=== PATIENT | female | born 1940 | race Caucasian/White ===

== ENCOUNTER → 2016-08-19 | Outpatient (CLI) | payer MEDICARE, BC, OTHER ==
[~2016-08-19] MED LIST: ALEN70TA39 PO; ARTI99.0 OU; ASPI81TA7 PO; BYST2.5T2 PO; CALC1TAB21 PO; CARV3.12 PO; ELIQ2.5T PO; ELIQ5TAB PO; FISH100049 PO; LISI-538 PO; MELO7.5T6 PO; OMEP20CA3 PO; REST0.05 OU; TYLE167L PO; TYLE650T30 PO; VITA-130 PO; VITA100066 PO; VITA250011 SL; VITMTA PO; [UNRECOGNIZED DRUG - CODE] PO; [UNRECOGNIZED DRUG - CODE] TD
--- NOTE | 2016-08-19 13:12 | REPMRS ---
Patient History The patient states she has not had a clinical breast exam in over a year. Patient is postmenopausal. Family history of premenopausal breast cancer in sister at age 50 or over. Benign excisional biopsy of the left breast, 1995. Taking estrogen for 34 years. Digital Woman Screen Mammo: August 19, 2016 - Exam #: [id number] Bilateral CC and MLO view(s) were taken. Technologist: Rozina Adorno, Technologist Prior study comparison: August 16, 2015, digital woman screen mammo performed at [facility]. August 09, 2014, digital woman screen mammo performed at [facility]. August 08, 2013, digital woman screen mammo performed at [facility]. FINDINGS: There are scattered fibroglandular densities. There has been no change in the appearance of the mammogram from the prior studies. There is a pacemaker power plant projecting over the left axilla on the MLO view. There is a mild amount of scattered fibroglandular density which is fairly symmetric. There is no interval development of dominant mass, architectural distortion, or clustered microcalcification suggestive of malignancy. ASSESSMENT: BI-RADS/ACR category 2 mammogram. Benign finding(s). Recommendation Routine screening mammogram in 1 year (for women over age 40). This mammogram was interpreted with the aid of an FDA-approved computer-aided dectection system. Electronically Signed By: Erik Locke MD 08/19/16 [id number]
== END ==
LOC: M WHC 10:50
PROVIDERS: ATTEND Family Medicine
DX: Z12.31 Encounter for screening mammogram for malignant neoplasm of breast (principal)

== ENCOUNTER → 2016-10-13 | Outpatient (REF) | payer MEDICARE, OTHER ==
[~2016-10-13] MED LIST changes: +ACET-654 PO
== END ==
LOC: M LAB REF 16:54
PROVIDERS: ATTEND Physician Assistant
DX: J30.9 Allergic rhinitis, unspecified (principal); J02.9 Acute pharyngitis, unspecified

== ENCOUNTER → 2016-10-17 | Outpatient (CLI) | payer MEDICARE, BC, OTHER ==
--- NOTE | 2016-10-17 09:33 | REP ---
Clinical: Hypertension . Comparison: 01/30/2016 . Technique: PA and lateral. Findings: The mediastinum and cardiac silhouette are normal. The lung johnson suggest COPD without acute consolidation, effusion, or pneumothorax. The skeletal structures are intact and normal. Impression: 1. No acute cardiopulmonary process. Signed by Angel Alicia MD 10/17/2016 09:25 A
[2016-10-17 09:38] LABS: MEAN CORPUSCULAR HEMOGLOBIN 30.1 pg (27.0-33.0); MEAN CORPUSCULAR HGB CONC 31.7 g/dl (32.0-36.5); MEAN CORPUSCULAR VOLUME 94.9 fl (80.0-96.0); RED CELL DISTRIBUTION WIDTH 12.6 % (11.5-14.5); WHITE BLOOD COUNT 7.7 K/mm3 (4.0-10.0)
[2016-10-17 09:42] LABS: INR 1.06
[2016-10-17 10:07] LABS: ALBUMIN 3.9 GM/DL (3.2-5.2); ALKALINE PHOSPHATASE 73 U/L (45-117); ALT/SGPT 19 U/L (12-78); ANION GAP 9 MEQ/L (8-16); AST/SGOT 16 U/L (15-37); BILIRUBIN,TOTAL 0.3 MG/DL (0.2-1.0); BLOOD UREA NITROGEN 17 MG/DL (7-18); CALCIUM LEVEL 9.1 MG/DL (8.8-10.2); CARBON DIOXIDE LEVEL 30 MEQ/L (21-32); CHLORIDE LEVEL 104 MEQ/L (98-107); CHOLESTEROL LEVEL 222 MG/DL (<200); CREATININE FOR GFR 0.91 MG/DL (0.55-1.02); GLOMERULAR FILTRATION RATE > 60.0 (>39); GLUCOSE, FASTING 83 MG/DL (83-110); POTASSIUM SERUM 3.9 MEQ/L (3.5-5.1); SODIUM LEVEL 143 MEQ/L (136-145); TOTAL PROTEIN 6.9 GM/DL (6.4-8.2); TRIGLYCERIDES LEVEL 86 MG/DL (<150)
--- NOTE | 2016-10-17 14:38 | ECGEPIP ---
Stationary ECG Study [facility] Test Date: 2016-10-17 Pat Name: SATINDER MORALSE Department: Room: - Gender: F Reporting Consultant: RODOLFO : 1940 Requested By: Yane Gunter Order Number: [id number] Reading MD: Ladarius Payne Measurements Intervals [place] Rate: 60 P: 110 [place]: 167 QRS: 62 QRSD: 96 T: 54 QT: 399 QTc: 399 Interpretive Statements Atrially paced rhythm Nonspecific ST-T wave abnormalities Compared to prior tracing of 01/29/2016, pacemaker activity not previously seen Electronically Signed On 10-17-2016 14:37:50 EDT by Ladarius Payne
== END ==
LOC: M LAB 08:36
PROVIDERS: ATTEND Family Medicine
DX: Z01.818 Encounter for other preprocedural examination (principal); I10 Essential (primary) hypertension; Z79.01 Long term (current) use of anticoagulants

== ENCOUNTER 2016-10-29 11:30 | Day surgery (SDC) | payer MEDICARE, BC, OTHER ==
[~2016-10-29] VITALS: Ht 152.4 cm; Wt 46.3 kg
[~2016-10-29 11:30] MED LIST changes: +ACETYLCHOLINE OPHTH SOLN 1% 2ML As Ordered ONE; +BALANCED SALT IRRIGATION SOLUTION 500ML BAG (FOR OR EYE MACHINE) As Ordered ONE; +HEALON DUET (HEALON 10MG/ML 0.55ML & HEALON ENDOCOAT 30MG/ML 0.85ML) As Ordered ONE; +LIDOCAINE 0.75%/EPINEPHRINE 0.025% IN BSS 1ML SYR INTRACAMERAL (OR ONLY) As Ordered ONE; +OFLOXACIN 0.3 % (OCUFLOX) OPTH SOL 5ML OS ONE; +PHENYLEPHRINE 2.5% OPHTH SOL 2ML OS ONE; +POVIDONE-IODINE 5% OPHTH PREP SOL 30ML As Ordered ONE; +PROPARACAINE 0.5% OPHTH SOL 15ML OS ONE; +TOBRADEX OPHTH OINT 3.5 GM As Ordered ONE; +TROPICAMIDE 1% OPHTH SOLN 2 ML OS ONE
[2016-10-29] MEDS ORDERED: TRIAMCINOLONE PRES FR 40 MG/ML 1ML(TRIESENCE)(OR EYE ONLY)(J3300 PER 1MG) As Ordered ONE (12:09)
[2016-10-29] MEDS ORDERED: HEALON DUET (HEALON 10MG/ML 0.55ML & HEALON ENDOCOAT 30MG/ML 0.85ML) As Ordered ONE ×2 (12:10→12:29)
[2016-10-29] MEDS ORDERED: fentaNYL 100 MCG/2 ML INJECTION (J3010) As Ordered ONE (12:54)
[2016-10-29] MEDS ORDERED: MIDAZOLAM INJ 2 MG/2 ML VIAL (J2250) As Ordered ONE (12:54)
[2016-10-29 13:45] VITALS: BP 175/77
--- NOTE | 2016-10-30 08:54 | RO ---
DATE OF PROCEDURE: 10/29/2016 PREOPERATIVE DIAGNOSIS: Visually significant nuclear sclerotic cataract left eye. POSTOPERATIVE DIAGNOSIS: Visually significant nuclear sclerotic cataract left eye. PROCEDURE: Extracapsular cataract removal with insertion of intraocular lens implant AU00T0, 18.5 Diopter, left eye SURGEON: Kike Devi DO PRINTMAKER: ANESTHESIA: Local with monitored anesthesia care (MAC). COMPLICATIONS: None. POSTOPERATIVE CONDITION: Stable. INDICATION FOR SURGERY: Blurred vision left eye affecting patient's activities of daily living. DESCRIPTION OF PROCEDURE: The patient was seen in the preoperative area and properly identified. The correct operative eye was identified and marked. Attention was turned to that eye. The patient received topical antibiotics in the preoperative area. The patient then received topical dilating drops consisting of tropicamide and phenylephrine. The patient was then transferred to the operating room. The correct side was reidentified. The patient received topical anesthetics and antibiotics on the surface of the eye. The eye was prepped and draped in a sterile fashion. The upper and lower eyelids were isolated with Tegaderm tape, and the lids were held open with an adjustable speculum. Using a sideport blade, a paracentesis incision was made. Intraocular preservative-free lidocaine was then injected into the anterior chamber. Viscoelastic was then injected into the anterior chamber through the paracentesis. Using a 2.65 mm sharp-tipped keratome, the anterior chamber was entered via a temporal clear corneal incision. A continuous curvilinear capsulorrhexis was created with the aid of a 26-gauge cystotome and Utrata forceps. Hydrodissection was performed with balanced salt solution (BSS) on a blunt cannula until the nucleus was freely mobile. The crystalline lens was phacoemulsified and aspirated. Additional cohesive viscoelastic was placed into the capsular bag to deepen it. AU00T0 18.5D lens was placed into the capsular bag and confirmed by visualizing the continuous curvilinear capsulorrhexis. Additional irrigation and aspiration was used to remove cortical material and remaining viscoelastic. The clear corneal incision was hydrated with BSS on a blunt cannula. The lens was well positioned. The incisions were then tested for leaks and found to be negative. The eye was then palpated for appropriate pressure and adjusted accordingly with BSS. The eyelid speculum was then carefully removed. Tobradex ointment was placed in the eye. An eye patch and shield were then secured over the eye. The patient tolerated the procedure well and was discharged to the recovery unit in a stable condition. JUAN CARLOS
== END 2016-10-29 14:00 | disposition home or self-care (01) ==
LOC: M SDC 11:30
PROVIDERS: ATTEND Ophthalmology
DX: H25.12 Age-related nuclear cataract, left eye (principal); H40.9 Unspecified glaucoma; I10 Essential (primary) hypertension; I48.91 Unspecified atrial fibrillation; Z95.0 Presence of cardiac pacemaker; K21.9 Gastro-esophageal reflux disease without esophagitis; M81.0 Age-related osteoporosis without current pathological fracture; J45.909 Unspecified asthma, uncomplicated; R06.83 Snoring; Z88.0 Allergy status to penicillin; Z88.5 Allergy status to narcotic agent; Z88.8 Allergy status to other drugs, medicaments and biological substances; Z91.02 Food additives allergy status; Z79.899 Other long term (current) drug therapy; Z79.01 Long term (current) use of anticoagulants; Z79.82 Long term (current) use of aspirin
CPT/HCPCS: 66984; J2250; J3010; J3300; V2632

== ENCOUNTER → 2016-11-12 | Day surgery (SDC) | payer MEDICARE, BC, OTHER ==
[~2016-11-12] VITALS: Ht 152.4 cm; Wt 46.3 kg
[~2016-11-12] MED LIST changes: +CEFUROXIME 1MG/0.1ML INTRACAMERAL INJ As Ordered ONE; +D5W/0.2% SODIUM CHLORIDE 1,000 ML IV SCH; +MIDAZOLAM INJ 2 MG/2 ML VIAL (J2250) As Ordered ONE; +OFLOXACIN 0.3 % (OCUFLOX) OPTH SOL 5ML OD ONE; -OFLOXACIN 0.3 % (OCUFLOX) OPTH SOL 5ML OS ONE; +PHENYLEPHRINE 2.5% OPHTH SOL 2ML OD ONE; -PHENYLEPHRINE 2.5% OPHTH SOL 2ML OS ONE; +PROPARACAINE 0.5% OPHTH SOL 15ML OD ONE; -PROPARACAINE 0.5% OPHTH SOL 15ML OS ONE; +TROPICAMIDE 1% OPHTH SOLN 2 ML OD ONE; -TROPICAMIDE 1% OPHTH SOLN 2 ML OS ONE; +fentaNYL 100 MCG/2 ML INJECTION (J3010) As Ordered ONE
[2016-11-12 08:50] VITALS: BP 183/83
--- NOTE | 2016-11-13 09:58 | RO ---
DATE OF PROCEDURE: 11/12/2016 PREOPERATIVE DIAGNOSIS: Visually significant nuclear sclerotic cataract right eye. POSTOPERATIVE DIAGNOSIS: Visually significant nuclear sclerotic cataract right eye. PROCEDURE: Cataract extraction with use of phacoemulsification and placement of intraocular lens AU00T0, 17.5 diopter right eye. SURGEON: Kike Devi DO HOG STICKER: ANESTHESIA: Local with monitored anesthesia care (MAC). COMPLICATIONS: None. POSTOPERATIVE CONDITION: Stable. INDICATION FOR SURGERY: Blurred vision right eye affecting patient's activities of daily living. DESCRIPTION OF PROCEDURE: The patient was seen in the preoperative area and properly identified. The correct operative eye was identified and marked. Attention was turned to that eye. The patient received topical antibiotics in the preoperative area. The patient then received topical dilating drops consisting of tropicamide and phenylephrine. The patient was then transferred to the operating room. The correct side was reidentified. The patient received topical anesthetics and antibiotics on the surface of the eye. The eye was prepped and draped in a sterile fashion. The upper and lower eyelids were isolated with Tegaderm tape, and the lids were held open with an adjustable speculum. Using a sideport blade, a paracentesis incision was made. Intraocular preservative-free lidocaine was then injected into the anterior chamber. Viscoelastic was then injected into the anterior chamber through the paracentesis. Using a 2.65 mm sharp-tipped keratome, the anterior chamber was entered via a temporal clear corneal incision. A continuous curvilinear capsulorrhexis was created with the aid of a 26-gauge cystotome and Utrata forceps. Hydrodissection was performed with balanced salt solution (BSS) on a blunt cannula until the nucleus was freely mobile. The crystalline lens was phacoemulsified and aspirated. Additional cohesive viscoelastic was placed into the capsular bag to deepen it. An AU00T0, 17.5 diopter lens was placed into the capsular bag and confirmed by visualizing the continuous curvilinear capsulorrhexis. Additional irrigation and aspiration was used to remove cortical material and remaining viscoelastic. The clear corneal incision was hydrated with BSS on a blunt cannula. The lens was well positioned. The incisions were then tested for leaks and found to be negative. The eye was then palpated for appropriate pressure and adjusted accordingly with BSS. The eyelid speculum was then carefully removed. Tobradex ointment was placed in the eye. An eye patch and shield were then secured over the eye. The patient tolerated the procedure well and was discharged to the recovery unit in a stable condition. JUAN CARLOS
== END | disposition home or self-care (01) ==
LOC: M SDC 06:27
PROVIDERS: ATTEND Ophthalmology
DX: H25.11 Age-related nuclear cataract, right eye (principal); H40.9 Unspecified glaucoma; I48.91 Unspecified atrial fibrillation; I10 Essential (primary) hypertension; J45.909 Unspecified asthma, uncomplicated; Z95.0 Presence of cardiac pacemaker; K21.9 Gastro-esophageal reflux disease without esophagitis; M81.0 Age-related osteoporosis without current pathological fracture; R06.83 Snoring; Z88.5 Allergy status to narcotic agent; Z88.0 Allergy status to penicillin; Z88.4 Allergy status to anesthetic agent; Z91.02 Food additives allergy status; Z79.899 Other long term (current) drug therapy; Z79.01 Long term (current) use of anticoagulants; Z79.82 Long term (current) use of aspirin
CPT/HCPCS: 66984; J2250; J3010; V2632

== ENCOUNTER 2017-04-02 09:42 | Inpatient (IN) | payer MEDICARE, BC, OTHER ==
[~2017-04-02] VITALS: Ht 152.4 cm; Wt 48.9 kg
[~2017-04-02 09:42] MED LIST changes: -ACET-654 PO; +ACET1TAB17 PO; -ACETYLCHOLINE OPHTH SOLN 1% 2ML As Ordered ONE; +ASPI1TAB15 PO; -ASPI81TA7 PO; -BALANCED SALT IRRIGATION SOLUTION 500ML BAG (FOR OR EYE MACHINE) As Ordered ONE; -CEFUROXIME 1MG/0.1ML INTRACAMERAL INJ As Ordered ONE; -D5W/0.2% SODIUM CHLORIDE 1,000 ML IV SCH; -HEALON DUET (HEALON 10MG/ML 0.55ML & HEALON ENDOCOAT 30MG/ML 0.85ML) As Ordered ONE; -LIDOCAINE 0.75%/EPINEPHRINE 0.025% IN BSS 1ML SYR INTRACAMERAL (OR ONLY) As Ordered ONE; -MELO7.5T6 PO; +MELO7.5T7 PO; -MIDAZOLAM INJ 2 MG/2 ML VIAL (J2250) As Ordered ONE; -OFLOXACIN 0.3 % (OCUFLOX) OPTH SOL 5ML OD ONE; -PHENYLEPHRINE 2.5% OPHTH SOL 2ML OD ONE; -POVIDONE-IODINE 5% OPHTH PREP SOL 30ML As Ordered ONE; -PROPARACAINE 0.5% OPHTH SOL 15ML OD ONE; -TOBRADEX OPHTH OINT 3.5 GM As Ordered ONE; -TROPICAMIDE 1% OPHTH SOLN 2 ML OD ONE; -VITA-130 PO; +VITA500T PO; -fentaNYL 100 MCG/2 ML INJECTION (J3010) As Ordered ONE
[2017-04-02] MEDS ORDERED: STOO100C PO (09:56)
[2017-04-02] MEDS ORDERED: LATA5OPD OU (09:56)
[2017-04-02] MEDS ORDERED: BUDE3CAP PO (09:57)
[2017-04-02] MEDS ORDERED: NS 500 ML IV ONE (10:15)
[2017-04-02] MEDS: NS 1,000 ML IV SCH ×3 (10:50→15:00)
[2017-04-02 11:11] LABS: ALBUMIN 3.7 GM/DL (3.2-5.2); ALKALINE PHOSPHATASE 57 U/L (45-117); ALT/SGPT 16 U/L (12-78); ANION GAP 13 MEQ/L (8-16); AST/SGOT 11 U/L (15-37); BILIRUBIN,DIRECT < 0.1 MG/DL (0.0-0.2); BILIRUBIN,TOTAL 0.3 MG/DL (0.2-1.0); BLOOD UREA NITROGEN 24 MG/DL (7-18); CALCIUM LEVEL 8.7 MG/DL (8.8-10.2); CARBON DIOXIDE LEVEL 24 MEQ/L (21-32); CHLORIDE LEVEL 106 MEQ/L (98-107); CREATININE FOR GFR 1.01 MG/DL (0.55-1.02); GLOMERULAR FILTRATION RATE 56.6 (>39); GLUCOSE, FASTING 107 MG/DL (83-110); MAGNESIUM LEVEL 1.4 MG/DL (1.8-2.4); POTASSIUM SERUM 3.5 MEQ/L (3.5-5.1); SODIUM LEVEL 143 MEQ/L (136-145); TOTAL PROTEIN 7.4 GM/DL (6.4-8.2)
[2017-04-02 11:27] LABS: ADD MANUAL DIFFER YES; DIFF SLIDE NUMBER 200; MEAN CORPUSCULAR HEMOGLOBIN 31.1 pg (27.0-33.0); MEAN CORPUSCULAR HGB CONC 32.8 g/dl (32.0-36.5); MEAN CORPUSCULAR VOLUME 94.9 fl (80.0-96.0); PLATELET COUNT, AUTOMATED 223 k/mm3 (150-450); RED CELL DISTRIBUTION WIDTH 12.7 % (11.5-14.5); WHITE BLOOD COUNT 5.1 K/mm3 (4.0-10.0)
[2017-04-02 11:29] LABS: BANDS 5 % (< 11); BASOPHILS 1 % (0-4)
[2017-04-02] MEDS ORDERED: MAG SULF 1GM/100ML (MAG RUN) 1 GM in APPROPRIATE DILUENT 1 EA IV ONE (11:30)
[2017-04-02] MEDS ORDERED: ACET50TAOT PO (12:57)
[2017-04-02] MEDS ORDERED: ONDANSETRON 4MG/2ML VIAL (J2405) IV PRN (13:30)
[2017-04-02] MEDS ORDERED: HEPARIN SOD (PORCINE) 5000 UNITS/ML VIAL SC SCH (13:30)
[2017-04-02 13:33] LABS: INR 1.01
[2017-04-02] MEDS ORDERED: POTASSIUM CHLORIDE 10 MEQ SR TABLET PO ONE (15:00)
--- NOTE | 2017-04-02 21:26 | HPEPDOC ---
General Date of Admission Apr 02, 2017 at 13:49 Primary Care Physician: Eze Attending Physician: HE Chief Complaint The patient is a 77-year-old female admitted with a reason for visit of Syncope And Colapse. Source: Patient, RN notes reviewed, Old records Exam Limitations: No limitations Associated Symptoms: Vomiting, Weakness History of Present Illness Ms. Baxter is a 77-year-old female who presents to [facility]'s Emergency Department with syncope and diarrhea. She is accompanied by her and her son. Past medical history is significant for collagenous colitis, atrial fibrillation , gastroesophageal reflux disease, sick sinus syndrome status post dual chamber pacemaker, grade I diastolic congestive heart failure, esophageal stricture with dilatation, constipation, hiatal hernia, glaucoma, post-menopausal vaginal dryness, diverticulosis, diverticulitis. Patient reports yellow, watery diarrhea since Wednesday. It is accompanied by diffuse abdominal pain that is sharp in nature. When specifically questioned about where the pain is she reports that it is midline and on the left side. She reports 12-15 episodes of diarrhea per day, but reports only minimal amounts of stool that pass with each bowel movement. Denies changes to her diet. Admits to an urge to defecate. Reports a similar episode a couple of years ago for which her primary care provider put her on prednisone. She reports minimal relief with that. States that gastroenterology performed a colonoscopy and stated that she had colitis and started her on Budesonide PO for when she develops diarrhea. She restarted her Budesonide on Wednesday and reports that since being in the hospital she has not had a bowel movement. She also reports three episodes of pre-syncope/syncope that initially started between midnight and 2AM. She reports ambulating to the restroom and being on the toilet when she states she lost consciousness. She denies post-ictal confusion and can recall the events prior and the events after the syncopal event. She then reports ambulating from the restroom back to the bedroom where she sat on the edge of the bed and felt lightheaded. She called for her 's assistance to help dress her and take her back to the restroom. She reports two more syncopal episodes in the restroom. Prior to the events she felt warm and diaphoretic. Admits to three episodes of dry heaves with one episode of clear vomitus. Admits to a headache before vomiting. Reports cardiac palpitations. Admits to low back pain. All other review of systems were negative. Evaluation in the emergency department revealed a low magnesium level and orthostatic blood pressures. Cardiac markers were negative. Hospitalist service was consulted and patient was admitted for further medical management. Home Medications Scheduled (Calcium 600 + D 600-200 mg-Unit) 1 Tab Tab, 1 TAB PO DAILY, (Reported) Acetaminophen (Acetaminophen) 500 Mg Tab, 1,000 MG PO BID, (Reported) Apixaban Base (Eliquis) 2.5 Mg Tab, 2.5 MG PO BID, (Reported) Ascorbic Acid (Vitamin C) 500 Mg Tab, 500 MG PO DAILY, (Reported) Aspirin (Aspirin) 81 Mg Tab, 81 MG PO DAILY, (Reported) Cholecalciferol (Vitamin D) 1,000 Unit Tab, 1,000 UNIT PO DAILY, (Reported) Cholestyramine (Cholestyramine) 4 Gm Pow, 4 GM PO ACHS Cyanocobalamin (Vitamin B-12) 2,500 Mcg Sub, 2,500 MCG SL DAILY, (Reported) Estradiol (Climara) 0.1 Mg/24 Hr Dis, 0.1 MG TD QWEEK, (Reported) WEDNESDAY, APPLIED TO ABDOMEN Fish Oil (Fish Oil 1000 mg) 1 Cap Cap, 1 CAP PO DAILY, (Reported) Latanoprost (Latanoprost) 50 Drop/2.5 Ml Soln, 1 DROP OU QHS, (Reported) Omeprazole (Omeprazole) 20 Mg Cap, 20 MG PO BID, (Reported) Prednisone (Prednisone) 20 Mg Tab, 20 MG PO DAILY Scheduled PRN Docusate Sodium (Stool Softener) 100 Mg Cap, 100 MG PO DAILY PRN for CONSTIPATION, (Reported) Loperamide HCl (Loperamide HCl) 2 Mg Cap, 2 MG PO TIDP PRN for DIARRHEA Allergies Coded Allergies: Red Dye (Unverified Allergy, Intermediate, RASH, 10/23/16) Codeine (Unverified Adverse Reaction, Intermediate, MIGRAINE, 10/23/16) Penicillins (Unverified Adverse Reaction, Intermediate, MIGRAINE, 10/23/16) Procaine (Unverified Adverse Reaction, Intermediate, MIGRAINE, 10/23/16) Past Medical History Medical History 1. Collagenous colitis 2. Atrial fibrillation 3. Gastroesophageal reflux disease 4. Sick sinus syndrome status post dual chamber pacemaker 5. Grade I diastolic congestive heart failure 6. Esophageal stricture with dilatation 7. Constipation 8. Hiatal hernia 9. Glaucoma 10. Post-menopausal vaginal dryness 11. Diverticulosis 12. 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 Denies tobacco Prior occasional EtOH use Denies illicit drug use Travel, domestic and international Review of Symptoms Constitutional: Reports: Weakness, Denies: Chills, Fever, Malaise, Night Sweats, Fatigue, Weight Loss Eyes: Denies: Pain, Vision change, Conjunctivae inflammation, Eyelid inflammation, Redness ENT: Reports: Head Aches, Denies: Ear Pain, Dysphagia, Sinus Congestion, Post Nasal Drip, Sore Throat, Epistaxis Skin: Denies: Rash, Lesions Pulmonary: Denies: Dyspnea, Cough Cardiovascular: Reports: Palpitations, Lt Headedness, Other Symptoms ( diaphoretic), Denies: Chest Pain, Edema Gastrointestinal: Reports: Vomiting (one episode, clear vomitus), Abdominal Pain, Diarrhea, Other Symptoms (dry heaves x3 episodes), Denies: Nausea, Constipation, Melena, Hematochezia Genitourinary: Denies: Dysuria, Frequency, Incontinence, Hematuria, Retention Hematologic: Denies: Bruising, Bleeding Excessively Endocrine: Denies: Polydipsia, Polyphagia, Polyuria Musculoskeletal: Reports: Back Pain, Denies: Neck Pain, Shoulder Pain, Joint Pain Neurological: Reports: Weakness Physical Examination General Exam: Positive: Alert, Cooperative, No Acute Distress Eye Exam: Positive: PERRLA, Conjunctiva & lids normal, EOMI, Negative: Sclera icteric, Ptosis ENT Exam: Positive: Atraumatic, Mucous membr. moist/pink, Pharynx Normal, Tongue Midline, Nares Patent, Negative: Pharyngeal Edema Neck Exam: Positive: Supple, +2 carotid pulse wo bruit, Negative: JVD, thyromegaly, Lymphadenopathy Chest Exam: Positive: Clear to auscultation, Normal air movement, Negative: Rales, Rhonchi, Wheezing Heart Exam: Positive: Rate Normal, Regular Rhythm, Normal S1, Normal S2, Negative: Gallops, Murmurs, Rubs Telemetry: Positive: Sinus Abdomen Exam: Positive: Normal bowel sounds, Soft, Negative: Tenderness, Hepatospenomegaly, Mass, Hernia Extremity Exam: Positive: Normal pulses, Negative: Clubbing, Cyanosis, Edema, Tenderness, Swelling Skin Exam: Positive: Nl turgor and temperature, Negative: Rash, Breakdown Neuro Exam: Positive: Normal Speech, Strength at 5/5 X4 ext, Cranial Nerves 3- 12 NL Psych Exam: Positive: Oriented x 3 Vital Signs Vital Signs Date Time Temp Pulse Resp B/P (MAP) Pulse Ox O2 Delivery O2 Flow Rate FiO2 04/02/17 19:31 74 97 04/02/17 19:01 134/60 (84) 04/02/17 09:43 98.1 18 Room Air Height (in): 60 Weight (kg): 104 BMI (kg): 44.8 Laboratory Data Labs 24H Laboratory Tests 2 04/02/17 10:36: Neutrophils 74, Band Neutrophils 5, Lymphocytes (Manual) 12L, Monocytes (Manual ) 8, Basophils (Manual) 1, Platelet Estimate NORMAL, Red Blood Cell Morphology NORMAL, Prothrombin Time 13.4, Prothromb Time International Ratio 1.01, Anion Gap 13, Glomerular Filtration Rate 56.6, Lactic Acid Level 1.0, Calcium Level 8.7L, Magnesium Level 1.4L, Aspartate Amino Transf (AST/SGOT) 11L, Alanine Aminotransferase (ALT/SGPT) 16, Alkaline Phosphatase 57, Total Bilirubin 0.3, Direct Bilirubin < 0.1, Total Creatine Kinase 51, Creatine Kinase MB 1.3, Creatine Kinase MB Relative Index 2.54, Troponin I < 0.02, Total Protein 7.4, Albumin 3.7, Albumin/Globulin Ratio 1.00, Lipase 102, Thyroid Stimulating Hormone (TSH) 0.904 04/02/17 18:55: Total Creatine Kinase 35, Creatine Kinase MB 1.0, Creatine Kinase MB Relative Index 2.85, Troponin I < 0.02 04/02/17 19:46: 04/02/17 19:47: CBC/BMP Laboratory Tests 04/02/17 10:36 Red Blood Count 4.35, Mean Corpuscular Volume 94.9, Mean Corpuscular Hemoglobin 31.1, Mean Corpuscular Hemoglobin Concent 32.8, Red Cell Distribution Width 12.7 Microbiology Microbiology 04/02/17 Stool Lactoferrin, Received Pending 04/02/17 Gastrointestinal Tract Panel (PCR), Received Pending Assessment/Plan Ms. Baxter is a 77-year-old female with a past medical history significant for collagenous colitis, atrial fibrillation, gastroesophageal reflux disease, sick sinus syndrome status post dual chamber pacemaker, grade I diastolic congestive heart failure, esophageal stricture with dilatation, constipation, hiatal hernia, glaucoma, post-menopausal vaginal dryness, diverticulosis, diverticulitis who presents with syncope secondary to dehydration and diarrhea. Plan / VTE VTE Prophylaxis Ordered?: Yes (TEDs, sequentials, knee high compression, Eliquis) Plan Plan Orthostatic hypotension NS @ 75 mLs/hr. Fall precautions in place. Bedrest with commode privileges for the time-being. Could consider adjusting once patient is no longer orthostatic. Obtain TSH (it was within optimal range). Obtain echocardiogram. Dr. Lazcano is patient's pool nurse. Diarrhea Appears to be resolving. Continue with Budesonide 9mg daily. Obtain GI panel. Obtain stool chloride, stool potassium, stool sodium, and stool polys. Monitor BMP for electrolyte abnormalities. Monitor I/Os. Dr. Devi is patient's pit recorder. Hypomagnesemia Replenished. Monitor magnesium levels. Atrial fibrillation Currently in NSR based on most recent EKG. Continue patient on Eliquis. Patient is not on a beta-madelaine. Dyslipidemia Continue patient on Prilosec. Disposition Admit: Progressive care unit Anticipated hospitalization: 2 nights Attending: Dr. Caldwell IVF: Initiate (NS @ 75 mLs/hr) Diet: Continue Current (2g sodium) Activity: Bedrest (with commode privileges) Diagnostics: Check Labs, Repeat Labs in AM, TTE Anticipated Discharge: Home GME ATTESTATION GME ATTESTATION My preceptor for this patient encounter was physically present in the building during the encounter and was fully available. As needed, all aspects of the patient interview, examination, medical decision making process, and medical care plan development were reviewed and approved by the preceptor. Preceptor is aware and concurs with the plan as stated in the body of this note and will attest to such by his/her cosignature. ATTENDING NOTE I have both independently examined this patient as well as reviewed the note. I have discussed in detail with the resident the findings and plan of treatment as documented in the residents note. I will continue to follow the patient and offer further guidance to the patients care as necessary during this hospital stay. ANISA Covarrubias MDI Apr 02, 2017 21:26 MIKY CALDWELL MD Apr 19, 2017 18:48
[2017-04-02 21:28] VITALS: BP_SYST 138; BP_SYST 140; BP_SYST 159; BP_DIAS 63; BP_DIAS 71; BP_DIAS 77
[2017-04-02] MEDS: APIXABAN 2.5 MG TAB (ELIQUIS) PO SCH (21:59)
[2017-04-02] MEDS: LATANOPROST 0.005% OPHTH SOLN 2.5 ML OU SCH (21:59)
[2017-04-02] MEDS: OMEPRAZOLE 20 MG CAP PO SCH (21:59)
[2017-04-03] VITALS (8 sets, daily range): BP systolic 129–193; BP diastolic 60–82
[2017-04-03] MEDS: NS 1,000 ML IV SCH (03:20)
[2017-04-03] MEDS ORDERED: **hydrALAZINE HCL** 25 MG TAB PO SCH (06:00)
[2017-04-03 07:29] LABS: ADD MANUAL DIFFER YES; MEAN CORPUSCULAR HEMOGLOBIN 30.4 pg (27.0-33.0); MEAN CORPUSCULAR HGB CONC 31.9 g/dl (32.0-36.5); MEAN CORPUSCULAR VOLUME 95.3 fl (80.0-96.0); PLATELET COUNT, AUTOMATED 192 k/mm3 (150-450); RED CELL DISTRIBUTION WIDTH 12.8 % (11.5-14.5)
[2017-04-03 07:35] LABS: ANION GAP 9 MEQ/L (8-16); BLOOD UREA NITROGEN 16 MG/DL (7-18); CALCIUM LEVEL 8.1 MG/DL (8.8-10.2); CARBON DIOXIDE LEVEL 22 MEQ/L (21-32); CHLORIDE LEVEL 115 MEQ/L (98-107); GLOMERULAR FILTRATION RATE > 60.0 (>39); GLUCOSE, FASTING 80 MG/DL (83-110); MAGNESIUM LEVEL 1.6 MG/DL (1.8-2.4); POTASSIUM SERUM 3.7 MEQ/L (3.5-5.1); SODIUM LEVEL 146 MEQ/L (136-145)
[2017-04-03] MEDS ORDERED: MAG SULF 1GM/100ML (MAG RUN) 1 GM in APPROPRIATE DILUENT 1 EA IV ONE (07:45)
[2017-04-03] MEDS ORDERED: POTASSIUM CHLORIDE 10 MEQ SR TABLET PO ONE (07:45)
[2017-04-03 08:00] LABS: EOSINOPHILS 2 % (0-5)
[2017-04-03] MEDS: BUDESONIDE EC 3 MG CAP (ENTOCORT EC) PO SCH (08:33)
[2017-04-03] MEDS: OMEPRAZOLE 20 MG CAP PO SCH ×2 (08:33→22:03)
[2017-04-03] MEDS: APIXABAN 2.5 MG TAB (ELIQUIS) PO SCH ×3 (08:33→22:21)
[2017-04-03] MEDS: ASCORBIC ACID 500 MG TAB PO SCH (08:33)
[2017-04-03] MEDS: VITAMIN D 1,000 INTERNATIONAL UNITS TABLET PO SCH (08:38)
[2017-04-03] MEDS: ASPIRIN 81 MG ENTERIC TAB PO SCH (08:38)
[2017-04-03] MEDS: LR 1,000 ML IV SCH ×2 (09:15→22:35)
--- NOTE | 2017-04-03 12:50 | ECHO ---
DATE OF STUDY: 04/03/2017 REFERRING PHYSICIAN: Abigail Cárdenas DO INDICATION: Syncope. The study was performed on 04/03/2017. The patient measures 152 cm and weighs 104 kg. Dimensions: IVS 1.0 LV 3.5 LVPW 1.0 LA 3.4 Aorta 2.9 Left atrial volume index is 19 ml/m2. FINDINGS: The study is of acceptable technical quality, especially considering the patient's body habitus. Left ventricle is of normal size and normal systolic function with estimated left ventricular ejection fraction (LVEF) 60% to 65%. Right ventricle also appears normal. Both atria appear normal. Left atrium is normal size. There is a pacemaker wire artifact apparent in right-sided heart chambers. Aortic valve is minimally sclerotic, but mobility is preserved. Mitral and tricuspid valve appear normal. Pulmonic valve was poorly visualized but grossly appears normal. No pericardial effusion is noted. Inferior vena cava is normal size. Aortic root and abdominal aorta appear normal. Aortic arch was not well seen. Doppler interrogation reveals no aortic stenosis or insufficiency. There is trace mitral insufficiency and mild tricuspid insufficiency. Calculated pulmonary artery pressure is in 30s corresponding to mild pulmonary hypertension. Mitral inflow pattern and tissue Doppler imaging of mitral annulus reveal grade 1 diastolic dysfunction. E prime septal and E prime lateral velocities are 7.1 and 7.5 cm/sec, respectively. CONCLUSIONS: 1. The study is of acceptable technical quality. 2. Normal left ventricle (LV) size and systolic function. Grade 1 diastolic dysfunction. 3. No significant valvular disease. 4. Normal central venous pressure. 5. Likely mild pulmonary hypertension. 6. Pacemaker wire artifact noted in right-sided heart chambers. COMMENT: Subacute bacterial endocarditis (SBE) prophylaxis is not recommended. No obvious findings to explain syncopal event. MTDD
[2017-04-03] MEDS: PINK BISMUTH SUSP 524MG/30ML ORAL SYRINGE PO SCH ×2 (13:10→18:30)
--- NOTE | 2017-04-03 16:45 | IPN ---
DATE: 04/03/2017 Patient seen and examined. No acute events overnight. Continues to have multiple episodes of diarrhea, more than 10 times. Denies any lightheadedness. Orthostatic hypotension has resolved. Denies fevers, chills, abdominal pain. Reported abdominal bloating. Denies any nausea or vomiting. Tolerating oral. VITAL SIGNS: Temperature 99.3, pulse 66, respirations 16, blood pressure 129/61, pulse oximetry 97% on room air. LABORATORY DATA: WBC 6, hemoglobin and hematocrit 11.7/36.7, platelets 192. Chemistry: Sodium 146, potassium 3.7, chloride 115, bicarbonate 22, BUN 16, creatinine 0.6, magnesium 1.6. Cardiac enzymes negative. PHYSICAL EXAMINATION: GENERAL: Patient alert and oriented times three in no acute distress. HEENT: Normocephalic, atraumatic. PULMONARY: Bilaterally clear to auscultation. CARDIAC: Regular rate and rhythm. Normal S1, S2. ABDOMEN: Soft. Hyperactive bowel sounds. No rebound. No guarding. EXTREMITIES: No clubbing, cyanosis, or edema. ASSESSMENT AND PLAN: This is a 77-year-old female patient with underlying medical history of collagenous colitis, atrial fibrillation, gastroesophageal reflux disease (GERD), sick sinus syndrome with dual-chamber pacemaker, grade 1 diastolic congestive heart failure (CHF), esophageal stricture with dilation, constipation, hiatal hernia, glaucoma, postmenopausal vaginal dryness, diverticulosis, diverticulitis, presented with syncope secondary to dehydration due to diarrhea. 1. Orthostatic hypotension. Intravenous (IV) fluids have been given. Patient currently normotensive. Will continue to monitor. Syncope workup. Will obtain echocardiogram. Patient's cardiology is Dr. Lazcano. 2. Diarrhea, likely secondary to flare-up of patient's collagenous colitis. Continue budesonide. Case discussed with Dr. Devi. Pepto-Bismol has been added. Gastrointestinal (GI) panel negative. Followup stool studies. Strict intake and output. Give additional IV fluids if needed. 3. Hypomagnesemia, likely secondary to GI loss. Supplement and continue to monitor. 4. Atrial fibrillation, currently normal sinus. Continue Eliquis. Patient not on beta blockers. 5. Dyslipidemia. Outpatient followup. 6. GERD. Continue proton pump inhibitor (PPI). 7. Deep vein thrombosis (DVT) prophylaxis. Patient on Eliquis. DISPOSITION: Pending clinical improvement. Will monitor fluid status.
--- NOTE | 2017-04-03 17:17 | ECGEPIP ---
Stationary ECG Study [facility] - ED Test Date: 2017-04-02 Pat Name: SATINDER MORALES Department: Room: - Gender: F Housing Management Officer: maxime : 1940 Requested By: Cris Duncan Order Number: [id number] Reading MD: Cris Duncan Measurements Intervals [place] Rate: 80 P: 80 MO: 145 QRS: 62 QRSD: 100 T: 26 QT: 368 QTc: 426 Interpretive Statements SINUS RHYTHM NONSPECIFIC ST & T-WAVE ABNORMALITY PRIOR 10/17/16 APACED Electronically Signed On 04-03-2017 17:17:28 EDT by Cris Duncan
[2017-04-03] MEDS: LATANOPROST 0.005% OPHTH SOLN 2.5 ML OU SCH (21:00)
[2017-04-03] MEDS: ACETAMINOPHEN TAB 650MG DOSE (2X325MG) PO SCH (22:45)
[2017-04-04 00:15] VITALS: BP 140/63
[2017-04-04] MEDS ORDERED: MAG SULF 1GM/100ML (MAG RUN) 1 GM in APPROPRIATE DILUENT 1 EA IV ONE (00:30)
[2017-04-04 05:33] VITALS: BP 143/63
[2017-04-04 05:46] LABS: ANION GAP 10 MEQ/L (8-16); BLOOD UREA NITROGEN 10 MG/DL (7-18); CARBON DIOXIDE LEVEL 22 MEQ/L (21-32); CHLORIDE LEVEL 114 MEQ/L (98-107); CREATININE FOR GFR 0.72 MG/DL (0.55-1.02); GLOMERULAR FILTRATION RATE > 60.0 (>39); GLUCOSE, FASTING 86 MG/DL (83-110); POTASSIUM SERUM 3.2 MEQ/L (3.5-5.1); SODIUM LEVEL 146 MEQ/L (136-145)
[2017-04-04 05:50] LABS: ADD MANUAL DIFFER YES; MEAN CORPUSCULAR HEMOGLOBIN 30.9 pg (27.0-33.0); MEAN CORPUSCULAR HGB CONC 33.7 g/dl (32.0-36.5); MEAN CORPUSCULAR VOLUME 91.8 fl (80.0-96.0); PLATELET COUNT, AUTOMATED 208 k/mm3 (150-450); RED CELL DISTRIBUTION WIDTH 12.7 % (11.5-14.5); WHITE BLOOD COUNT 4.9 K/mm3 (4.0-10.0)
[2017-04-04] MEDS ORDERED: POTASSIUM CHLORIDE 10 MEQ SR TABLET PO ONE ×2 (06:00→08:00)
[2017-04-04] MEDS: OMEPRAZOLE 20 MG CAP PO SCH ×2 (06:41→21:00)
[2017-04-04] MEDS: PINK BISMUTH SUSP 524MG/30ML ORAL SYRINGE PO SCH ×3 (06:42→16:59)
[2017-04-04] MEDS: BUDESONIDE EC 3 MG CAP (ENTOCORT EC) PO SCH (06:42)
[2017-04-04 07:42] LABS: BANDS 10 % (< 11); EOSINOPHILS 5 % (0-5)
[2017-04-04 08:00] VITALS: BP 116/56
[2017-04-04] MEDS: APIXABAN 2.5 MG TAB (ELIQUIS) PO SCH (08:37)
[2017-04-04] MEDS: ASCORBIC ACID 500 MG TAB PO SCH (08:37)
[2017-04-04] MEDS: VITAMIN D 1,000 INTERNATIONAL UNITS TABLET PO SCH (08:38)
[2017-04-04] MEDS: ASPIRIN 81 MG ENTERIC TAB PO SCH (08:38)
[2017-04-04 12:00] VITALS: BP 121/64
[2017-04-04] MEDS: LR 1,000 ML IV SCH (13:06)
--- NOTE | 2017-04-04 15:07 | IPN ---
DATE: 04/04/2017 The patient is seen and examined. No acute events overnight. Continued to report diarrhea, at least three episodes overnight that is watery, initially was solid but later this morning was watery. Denies fevers, chills, chest pain, pressure or discomfort. Reported one episode of fever 100.9 overnight. Denies any abdominal pain but does report some bloating, gassy. Overall, the patient reported symptoms to be improved. VITAL SIGNS: Maximum temperature (T-max) 100.9, T-current 98.8, pulse 97, respirations 19, blood pressure 116/56, pulse oximetry 97% on room air. LABORATORY DATA: WBC 4.9, hemoglobin and hematocrit 12/35.6, platelets 208. Chemistry: Sodium 146, potassium 3.2, chloride 114, bicarbonate 22, BUN 10, creatinine 0.72. PHYSICAL EXAMINATION: GENERAL: Patient alert and oriented times three in no acute distress. HEENT: Normocephalic, atraumatic. PULMONARY: Bilaterally clear to auscultation. CARDIAC: Regular rate and rhythm every normal S1, S2. ABDOMEN: Soft, nondistended. Normal bowel sounds. No rebound. No guarding. EXTREMITIES: No clubbing, cyanosis, or edema. ASSESSMENT AND PLAN: This is a 77-year-old female patient with underlying medical history of collagenous colitis, atrial fibrillation, gastroesophageal reflux disease (GERD), sick sinus syndrome with dual-chamber pacemaker, grade 1 diastolic dysfunction, esophageal stricture with dilation, constipation, hiatal hernia, glaucoma, postmenopausal vaginal dryness, diverticulosis, diverticulitis, who presented with syncope secondary to dehydration and diarrhea. 1. Orthostatic hypotension. Resolved with intravenous (IV) fluids. The patient is currently normotensive. We will continue to monitor. 2. Syncope. Telemetry monitoring. The patient's outpatient photographic reproduction technician is Dr. Lazcano. Echocardiogram appreciated. 3. Diarrhea, secondary to flare-up of patient's collagenous colitis. Continue budesonide. Case discussed with Dr. Devi. Pepto-Bismol has been added. Gastrointestinal (GI) panel has been negative. Stool studies appreciated. Strict intake and output. IV fluids initially provided. We will add cholestyramine if the patient's symptoms do not improved. 4. Hypomagnesemia, hypokalemia. Supplement and continue to follow. Likely secondary to GI loss. 5. Atrial fibrillation, currently in sinus rhythm. Continue Eliquis. The patient not on beta blockers. Telemetry monitoring. 6. Dyslipidemia. Outpatient followup. 7. GERD. Continue proton pump inhibitor (PPI). 8. Deep vein thrombosis (DVT) prophylaxis. The patient on Eliquis. DISPOSITION: Pending clinical improvement. We will monitor the patient's fluid status and bowel movements.
[2017-04-04 16:00] VITALS: BP 125/60
[2017-04-04] MEDS: CHOLESTYRAMINE 4 GM PWD PKT PO SCH ×2 (16:59→20:55)
[2017-04-04 20:02] VITALS: BP 136/61
[2017-04-04] MEDS: LATANOPROST 0.005% OPHTH SOLN 2.5 ML OU SCH (21:00)
[2017-04-04] MEDS: ACETAMINOPHEN TAB 650MG DOSE (2X325MG) PO SCH (21:00)
[2017-04-05 00:19] VITALS: BP 138/63
[2017-04-05] MEDS: LR 1,000 ML IV SCH ×2 (01:15→17:19)
[2017-04-05 04:57] VITALS: BP 144/66
[2017-04-05 05:24] LABS: BASO % 0.4 % (0.0-1.0); EOS # 0.1 K/mm3 (0.0-0.50); EOS % 1.8 % (0.0-3.0); LARGE UNSTAINED CELL # 0.3 K/mm3 (0.0-0.4); LYMPH # 1.4 K/mm3 (1.5-4.5); LYMPH % 19.5 % (24.0-44.0); MEAN CORPUSCULAR HEMOGLOBIN 31.8 pg (27.0-33.0); MEAN CORPUSCULAR HGB CONC 34.2 g/dl (32.0-36.5); MEAN CORPUSCULAR VOLUME 93.1 fl (80.0-96.0); MONO # 1.1 K/mm3 (0.0-0.8); MONO % 14.4 % (0.0-5.0); NEUTROPHILS # 4.4 K/mm3 (1.8-7.7); PLATELET COUNT, AUTOMATED 210 k/mm3 (150-450); RED CELL DISTRIBUTION WIDTH 12.7 % (11.5-14.5); WHITE BLOOD COUNT 7.4 K/mm3 (4.0-10.0)
[2017-04-05 05:40] LABS: ANION GAP 9 MEQ/L (8-16); BLOOD UREA NITROGEN 9 MG/DL (7-18); CALCIUM LEVEL 8.4 MG/DL (8.8-10.2); CARBON DIOXIDE LEVEL 24 MEQ/L (21-32); CHLORIDE LEVEL 111 MEQ/L (98-107); CREATININE FOR GFR 0.87 MG/DL (0.55-1.02); GLOMERULAR FILTRATION RATE > 60.0 (>39); GLUCOSE, FASTING 81 MG/DL (83-110); POTASSIUM SERUM 3.7 MEQ/L (3.5-5.1); SODIUM LEVEL 144 MEQ/L (136-145)
[2017-04-05] MEDS: CHOLESTYRAMINE 4 GM PWD PKT PO SCH ×4 (06:23→20:35)
[2017-04-05 08:00] VITALS: BP 142/62
[2017-04-05] MEDS: OMEPRAZOLE 20 MG CAP PO SCH ×2 (08:22→20:36)
[2017-04-05] MEDS: APIXABAN 2.5 MG TAB (ELIQUIS) PO SCH ×2 (08:23→20:36)
[2017-04-05] MEDS: BUDESONIDE EC 3 MG CAP (ENTOCORT EC) PO SCH (08:23)
[2017-04-05] MEDS: PINK BISMUTH SUSP 524MG/30ML ORAL SYRINGE PO SCH ×3 (08:23→17:18)
[2017-04-05] MEDS: VITAMIN D 1,000 INTERNATIONAL UNITS TABLET PO SCH (08:23)
[2017-04-05] MEDS: ASPIRIN 81 MG ENTERIC TAB PO SCH (08:23)
[2017-04-05] MEDS: ASCORBIC ACID 500 MG TAB PO SCH (08:23)
[2017-04-05 12:00] VITALS: BP 144/64
[2017-04-05] MEDS: LOPERAMIDE 2 MG CAP PO SCH ×3 (12:20→20:36)
--- NOTE | 2017-04-05 12:21 | IPN ---
DATE OF SERVICE: 04/05/2017 Patient continues to have numerable episodes of diarrhea. She said that she had 10 bowel movements since 4 a.m. this morning. She also complains of severe crampy abdominal pain, nausea, as well as severe back pain after we started her on the new medication yesterday, which I believe is cholestyramine. She also had low grade fevers yesterday with maximum temperature (Tmax) of 100.6. She says some of her bloody bowel movements are watery but most of them are small amounts and greenish liquid colored. She said that she has been watching what she eats and had only yogurt and some toast this morning. PHYSICAL EXAMINATION: VITAL SIGNS: Temperature 100.6, pulse 88, respiratory rate 18, blood pressure 142/62, pulse oximetry 100% in room air. GENERAL: Patient awake, alert, oriented times three, sitting up in bed, in no acute distress. HEENT: Normocephalic, atraumatic. Moist mucous membranes. Anicteric eyes. CHEST: Clear auscultation. CARDIOVASCULAR: There is a short systolic murmur in the aortic area. S1, S2 normal. Regular rate. ABDOMEN: Soft. Generalized tenderness in all the quadrants as well as in the periumbilical area. No rebound or guarding. Bowel sounds are normal. EXTREMITIES: No edema clubbing or cyanosis. LABORATORY DATA: WBC 7.4, hemoglobin 11.8, platelets 210. Sodium 144, potassium 3.7, chloride 111, bicarbonate 24, BUN 9, creatinine 0.8, glucose 81, calcium 8.4. Blood cultures no growth to date. GI panel has been negative. stool leucocyte is positive. ASSESSMENT AND PLAN: This is a 77-year-old female admitted for syncope, diarrhea and dehydration. Plan: 1. Syncope due to orthostatic hypotension due to volume hypovolemia from diarrhea and dehydration has resolved with intravenous (IV) fluids. Telemetry did not show any acute cardiac events to explain syncope. Echocardiogram has been reviewed. She probably has mild pulmonary hypertension and has grade 1 diastolic dysfunction. 2. Diarrhea secondary to flare-up of patient's collagenous colitis. Will continue budesonide, Pepto-Bismol, proton pump inhibitor (PPI). Patient also continue with cholestyramine for now. Will start the patient on Imodium. Dr. Devi from GI will evaluate the patient. Will continue with gentle hydration. 3. Atrial fibrillation. Currently in sinus rhythm. Patient also has a pacemaker in place. Will continue with Eliquis. 4. Dyslipidemia. Outpatient followup. 5. Gastroesophageal reflux disease (GERD). Will continue with PPI. 6. Deep vein thrombosis (DVT) prophylaxis. Patient is on Eliquis. 7. Electrolytes imbalance have been corrected. Will continue to monitor. MTDD
[2017-04-05] MEDS: predniSONE 10 MG TAB PO SCH (16:07)
[2017-04-05 20:00] VITALS: BP 137/59
[2017-04-05] MEDS: LATANOPROST 0.005% OPHTH SOLN 2.5 ML OU SCH (20:36)
[2017-04-05] MEDS: ACETAMINOPHEN TAB 650MG DOSE (2X325MG) PO SCH (20:36)
[2017-04-06 04:00] VITALS: BP 135/65
[2017-04-06 05:43] LABS: BASO % 0.1 % (0.0-1.0); EOS # 0.1 K/mm3 (0.0-0.50); EOS % 0.6 % (0.0-3.0); LARGE UNSTAINED CELL # 0.2 K/mm3 (0.0-0.4); LARGE UNSTAINED CELL % 2.4 % (0.0-4.0); LYMPH # 1.1 K/mm3 (1.5-4.5); LYMPH % 11.8 % (24.0-44.0); MEAN CORPUSCULAR HEMOGLOBIN 31.3 pg (27.0-33.0); MEAN CORPUSCULAR HGB CONC 34.3 g/dl (32.0-36.5); MEAN CORPUSCULAR VOLUME 91.3 fl (80.0-96.0); MONO # 0.4 K/mm3 (0.0-0.8); MONO % 4.2 % (0.0-5.0); NEUTROPHILS # 7.4 K/mm3 (1.8-7.7); NEUTROPHILS % 80.8 % (36.0-66.0); PLATELET COUNT, AUTOMATED 203 k/mm3 (150-450); RED CELL DISTRIBUTION WIDTH 12.6 % (11.5-14.5); WHITE BLOOD COUNT 9.2 K/mm3 (4.0-10.0)
[2017-04-06 06:01] LABS: ANION GAP 7 MEQ/L (8-16); BLOOD UREA NITROGEN 15 MG/DL (7-18); CALCIUM LEVEL 8.4 MG/DL (8.8-10.2); CARBON DIOXIDE LEVEL 24 MEQ/L (21-32); CHLORIDE LEVEL 111 MEQ/L (98-107); CREATININE FOR GFR 0.71 MG/DL (0.55-1.02); GLOMERULAR FILTRATION RATE > 60.0 (>39); GLUCOSE, FASTING 126 MG/DL (83-110); POTASSIUM SERUM 3.7 MEQ/L (3.5-5.1); SODIUM LEVEL 142 MEQ/L (136-145)
[2017-04-06] MEDS: LR 1,000 ML IV SCH ×2 (06:07→20:03)
[2017-04-06 06:30] VITALS: BP 157/94
[2017-04-06] MEDS: VITAMIN D 1,000 INTERNATIONAL UNITS TABLET PO SCH (09:20)
[2017-04-06] MEDS: OMEPRAZOLE 20 MG CAP PO SCH ×2 (09:20→21:03)
[2017-04-06] MEDS: LOPERAMIDE 2 MG CAP PO SCH ×3 (09:21→21:01)
[2017-04-06] MEDS: CHOLESTYRAMINE 4 GM PWD PKT PO SCH ×4 (09:21→21:01)
[2017-04-06] MEDS: predniSONE 10 MG TAB PO SCH (09:21)
[2017-04-06] MEDS: APIXABAN 2.5 MG TAB (ELIQUIS) PO SCH ×2 (09:21→21:03)
[2017-04-06] MEDS: ASPIRIN 81 MG ENTERIC TAB PO SCH (09:21)
[2017-04-06] MEDS: ASCORBIC ACID 500 MG TAB PO SCH (09:21)
[2017-04-06] MEDS: PINK BISMUTH SUSP 524MG/30ML ORAL SYRINGE PO SCH ×3 (09:22→17:35)
[2017-04-06 11:00] VITALS: BP_SYST 136; BP_SYST 148; BP_SYST 152; BP_DIAS 62; BP_DIAS 66; BP_DIAS 67
[2017-04-06 13:11] VITALS: BP_SYST 136; BP_SYST 148; BP_SYST 152; BP_DIAS 62; BP_DIAS 66; BP_DIAS 67
[2017-04-06 14:00] VITALS: BP 157/68
--- NOTE | 2017-04-06 14:05 | IPN ---
DATE OF EXAMINATION: 04/06/2017 SUBJECTIVE: The patient tells me she is feeling significantly better. She had only bowel movements overnight. She denies chest pain, fevers, chills, lightheadedness with standing, nausea, vomiting, or diarrhea. OBJECTIVE: VITAL SIGNS: Temperature 97.3. Pulse: 78. Respiratory rate 20. Blood pressure (BP) 157/94. Oxygen (O2) saturation 96% on room air. GENERAL: She is frail elderly female sitting up in bed. She is accompanied by her and son. The patient does not appear to be in any acute distress whatsoever. HEENT: Cranial nerves II-XII are grossly intact. She has moist mucous membranes. No elevation in central venous pressure. CARDIOVASCULAR EXAMINATION: S1, S2. Regular. RESPIRATORY EXAMINATION: Is clear. ABDOMINAL EXAMINATION: Bowel sounds are present. There is diffuse tenderness to palpation. EXTREMITIES: No clubbing, cyanosis, or edema. LABORATORY STUDIES: WBC 9.2, hemoglobin 10.4, platelet count 203. Chemistry panel: Sodium 142, potassium 3.7, chloride 111, bicarbonate 24, BUN 15, creatinine 0.7. MICROBIOLOGY: Blood cultures are negative after 48 hours. Gastrointestinal (GI) PCR panel is negative. No new imaging. ASSESSMENT AND PLAN: This is a 77-year-old female with orthostatic hypotension and syncope secondary to hypovolemia related to diarrhea. PROBLEMS: 1. Collagenous colitis. The patient follows with Dr. Devi. He was able to see the patient here and has titrated the patient and placed her on prednisone 30 mg daily, and she is having a positive response to that. She is also on Pepto-Bismol, a proton pump inhibitor, and cholestyramine, as well as Imodium. Her symptoms do appear to be improving at this time and resolved. Will continue to hydrate her for an additional day and have her get up and ambulate and make sure she is tolerating a regular diet. Should she continue to maintain this overnight progress, I suspect she will be able to be discharged home at the latest tomorrow. 2. Syncope secondary to orthostatic hypotension related to diarrhea, as outlined above. Will check orthostatics on her today. 3. Atrial fibrillation. She is status post a pacer. The is on Eliquis. For the time being, she is not requiring any rate-controlling agents nor does she at home. 4. Gastroesophageal reflux disease. The patient is on a proton pump inhibitor (PPI). 5. Glaucoma. The patient is on Xalatan. 6. Deep vein thrombosis (DVT) prophylaxis. The patient is on Eliquis. DISPOSITION: She has been cleared by physical therapy, pending her continued progress. I suspect she will be able to be discharged home as early as tomorrow.
[2017-04-06] MEDS: LATANOPROST 0.005% OPHTH SOLN 2.5 ML OU SCH (21:00)
[2017-04-06] MEDS: ACETAMINOPHEN TAB 650MG DOSE (2X325MG) PO SCH (21:03)
[2017-04-06 22:00] VITALS: BP 130/85
[2017-04-07 06:00] VITALS: BP 162/65
[2017-04-07 06:28] LABS: BASO % 0.2 % (0.0-1.0); EOS % 0.1 % (0.0-3.0); LARGE UNSTAINED CELL # 0.3 K/mm3 (0.0-0.4); LARGE UNSTAINED CELL % 3.1 % (0.0-4.0); LYMPH # 1.7 K/mm3 (1.5-4.5); LYMPH % 16.6 % (24.0-44.0); MEAN CORPUSCULAR HEMOGLOBIN 30.6 pg (27.0-33.0); MEAN CORPUSCULAR HGB CONC 33.4 g/dl (32.0-36.5); MEAN CORPUSCULAR VOLUME 91.5 fl (80.0-96.0); MONO # 0.7 K/mm3 (0.0-0.8); MONO % 6.3 % (0.0-5.0); NEUTROPHILS # 7.7 K/mm3 (1.8-7.7); NEUTROPHILS % 73.7 % (36.0-66.0); PLATELET COUNT, AUTOMATED 243 k/mm3 (150-450); RED CELL DISTRIBUTION WIDTH 12.5 % (11.5-14.5); WHITE BLOOD COUNT 10.4 K/mm3 (4.0-10.0)
[2017-04-07 06:54] LABS: ANION GAP 7 MEQ/L (8-16); CALCIUM LEVEL 8.6 MG/DL (8.8-10.2); CARBON DIOXIDE LEVEL 24 MEQ/L (21-32); CHLORIDE LEVEL 113 MEQ/L (98-107); CREATININE FOR GFR 0.84 MG/DL (0.55-1.02); GLOMERULAR FILTRATION RATE > 60.0 (>39); GLUCOSE, FASTING 86 MG/DL (83-110); POTASSIUM SERUM 3.8 MEQ/L (3.5-5.1); SODIUM LEVEL 144 MEQ/L (136-145)
[2017-04-07 07:05] LABS: BLOOD UREA NITROGEN 23 MG/DL (7-18)
[2017-04-07 08:30] VITALS: BP 135/68
[2017-04-07] MEDS: LOPERAMIDE 2 MG CAP PO SCH (09:00)
[2017-04-07] MEDS: CHOLESTYRAMINE 4 GM PWD PKT PO SCH (09:36)
[2017-04-07] MEDS: PINK BISMUTH SUSP 524MG/30ML ORAL SYRINGE PO SCH (09:36)
[2017-04-07] MEDS: ASPIRIN 81 MG ENTERIC TAB PO SCH (09:36)
[2017-04-07] MEDS: predniSONE 10 MG TAB PO SCH (09:36)
[2017-04-07] MEDS: ASCORBIC ACID 500 MG TAB PO SCH (09:36)
[2017-04-07] MEDS: VITAMIN D 1,000 INTERNATIONAL UNITS TABLET PO SCH (09:36)
[2017-04-07] MEDS: OMEPRAZOLE 20 MG CAP PO SCH (09:36)
[2017-04-07] MEDS: APIXABAN 2.5 MG TAB (ELIQUIS) PO SCH (09:36)
[2017-04-07] MEDS ORDERED: LOPE2CA PO (09:48)
[2017-04-07] MEDS ORDERED: PRED20TA PO (09:48)
[2017-04-07] MEDS ORDERED: CHOL4PW PO (09:48)
--- NOTE | 2017-04-07 10:45 | DSES ---
DATE OF ADMISSION: 04/02/2017 DATE OF DISCHARGE: DISCHARGE DIAGNOSIS: Collagenous colitis. SECONDARY DIAGNOSES: Syncope. Orthostatic hypotension. Diarrhea. Dehydration. Atrial fibrillation. Gastroesophageal reflux disease. HOSPITAL COURSE: The patient is a 77-year-old female who initially presented with orthostatic hypotension, episode of syncope. She was admitted to the progressive care unit, was monitored on telemetry. She did have an echocardiogram completed during her stay which revealed normal LV size and systolic function, with diastolic dysfunction as well as a pacemaker wire artifact with mild pulmonary hypertension. She did not have any significant arrhythmia. She did respond to fluid. She was noted to have fairly severe collagenous diarrhea. She normally follows with Dr. Devi for this. She was having 20 bowel movements per day. She was seen by Dr. Devi in consultation during her stay here, started on prednisone, bismuth, cholestyramine and loperamide and had very good response. GI/PCR panel was negative. At this time , her diarrhea has resolved. SUBJECTIVE: The patient tells me she is feeling great and wants to go home and she has no complaints of diarrhea. No abdominal pain, nausea, vomiting, fevers, chills, chest pain, shortness of breath. OBJECTIVE: Vital signs: Temperature 98.3, pulse 63, respiratory rate 19, blood pressure 135/68, 02 sat 96% on room air. General: She is a pleasant, frail, elderly, female lying in bed at a 30 degree angle. She does not appear to be in any acute distress whatsoever. HEENT: Cranial nerves II-XII grossly intact. She has moist mucous membranes and elevation of central venous pressure (CVP). Cardiovascular exam: S1, S2, regular. Respiratory exam: Clear. Abdominal exam: Quite benign. Bowel sounds are present. The abdomen is soft. Extremities: There is no clubbing, cyanosis or edema. LABORATORY STUDIES: WBC 10.4, hemoglobin 10.4, platelet count 243. Chemistry panel: Sodium 144, potassium 3.8, chloride 113, bicarbonate 24, BUN 23, creatinine 0.8. Microbiology: GI/PCR panel is negative. Blood culture is negative at 72 hours. ASSESSMENT AND PLAN: This is a 77-year-old female with orthostatic hypotension and syncope secondary to hypovolemia related to collagenous colitis and diarrhea. PROBLEMS: 1. Collagenous colitis and diarrhea. Dr. Devi's help is greatly appreciated. I have spoken with him this morning. We will discharge the patient on prednisone 20 mg daily as well as proton pump twice daily, cholestyramine and Imodium as needed. Her diarrhea has resolved at this time. We recommend that she followup with Dr. Devi within 2 weeks. She is tolerating a 2 gram sodium diet. 2. Syncope secondary to orthostatic hypotension related to diarrhea and dehydration as outlined above. She is no longer orthostatic. Resolved. 3. Atrial fibrillation. She is status post a pacer. She is on Eliquis for anticoagulation. She does not require any rate controlling agents. 4. Gastroesophageal reflux disease. She is on a PPI twice daily. 5. Glaucoma. She is on Xalatan. 6. Vitamin D deficiency. She is on supplementation. 7. B12 deficiency. She is on supplementation. DISPOSITION: The patient is being discharge home to the care of her family. She has been cleared by physical therapy. She is to followup with her primary care physician in 7 days and followup with Dr. Devi within 2 weeks. Her activity and diet are as prior to admission. She is to return to the ER if her symptoms worse. MEDICATIONS AT THE TIME OF DISCHARGE: - cholestyramine 4 grams before meals and at bedtime - loperamide 2 mg three times a day as needed for diarrhea - prednisone 20 mg daily - Tylenol 1 gram twice a day - Eliquis 2.5 mg twice a day - vitamin C 500 mg daily - aspirin 81 mg daily - calcium with vitamin D 600/200 one tablet daily - vitamin D 1000 units daily - vitamin B12 2500 mcg sublingually daily - docusate 100 mg capsules daily as needed for constipation - estradiol 0.1 mg every 24 hours transdermally weekly on applied to the abdomen - fish oil 1 gram daily - latanoprost one drop each eye at bedtime - omeprazole 20 mg twice a day Greater than 30 minutes spent organizing disposition. [facility]
--- NOTE | 2017-04-19 20:42 | CR ---
DATE OF CONSULTATION: 04/05/2017 This is a 77-year white female who is known to me you for a previous diagnosis of collagenous colitis. The patient was admitted on 04/02/2017 to [facility] with syncope and diarrhea. She has multiple medical problems including a known diagnosis for collagenous colitis, known atrial fibrillation, reflux sick sinus syndrome has a dual chamber pacemaker, grade 1 diastolic congestive heart failure, chronic constipation, hiatal hernia, glaucoma, diverticulitis and diverticulosis. The patient relates several days prior to admission she developed severe watery diarrhea up to 12-15 times a day, no complaints of melena, hematochezia or bright red blood per rectum. She had not been seen by my office for this problem for that past several years. She was diagnosed by colonoscopy in the past, over the past two years by biopsies and was treated with budesonide with resolution of her symptoms. The patient tried to restart her budesonide as an outpatient but this did not seem to help control her symptoms. Due to the severe bouts of diarrhea, the patient had several bouts of syncope and was brought to the ER. No complaints of abdominal pain. No weight loss. No fevers, night sweats or shaking chills. MEDICATIONS AT HOME: Include Eliquis, Tylenol, vitamin B, baby aspirin, vitamin D, Questran, vitamin B12, fish oil, and omeprazole ALLERGIES: To CODEINE, PENICILLIN and PROCAINE. PAST MEDICAL HISTORY: Is as above. REVIEW OF SYSTEMS: Noncontributory to the above problems. SOCIAL HISTORY: Noncontributory again to the above problem. REVIEW OF SYSTEMS: 12-point review of systems reviewed and the main focus history for the GI tract is as above. GENERAL: Well-developed, well-nourished white female in no obvious acute distress Who appears stated age. CHEST: was clear to auscultation. CARDIOVASCULAR EXAM: Showed a regular rhythm. No murmurs or gallops. Normal physiological split S1, S2. ABDOMEN: Soft, nontender without guarding, rebound, hepatosplenomegaly. Bowel sounds positive. EXTREMITIES: No signs of cyanosis, clubbing or edema. Laboratory studies on admission showed a white count of 5100. White count only went up slightly to 10,400. H H was stable at about 10 and 30. Chemistry was normal with normal electrolytes, BUN was 10 and creatinine was 0.80 on discharge. Calcium was a little low. Stools for C. difficile and check for infection was all negative. IMAGING STUDIES ON THIS PATIENT FOR THIS ADMISSION: There were no imaging studies done during this hospitalization. ANALYSIS: Acute flare of collagenous colitis. At present time plan would be to restart the patient on prednisone 30 mg a day, maintain the Questran until discharge and see back in the office and Imodium can be used to control diarrhea. PLAN: See back in the office after discharge.
== END 2017-04-07 13:03 | disposition home or self-care (01) | DRG 392 ==
LOC: M ED 09:42 → M ED INP 13:49 → M PCU 04-03 16:58 → M MSPAV 04-06 06:50
PROVIDERS: ADMIT Hospitalist; ATTEND Internal Medicine
DX: K52.831 Collagenous colitis (principal); I50.32 Chronic diastolic (congestive) heart failure; I95.1 Orthostatic hypotension; E83.42 Hypomagnesemia; K57.90 Diverticulosis of intestine, part unspecified, without perforation or abscess without bleeding; K44.9 Diaphragmatic hernia without obstruction or gangrene; I48.91 Unspecified atrial fibrillation; E78.5 Hyperlipidemia, unspecified; E86.0 Dehydration; E53.8 Deficiency of other specified B group vitamins; K21.9 Gastro-esophageal reflux disease without esophagitis; E55.9 Vitamin D deficiency, unspecified; I27.2 Other secondary pulmonary hypertension; H40.9 Unspecified glaucoma; Z95.0 Presence of cardiac pacemaker; Z79.82 Long term (current) use of aspirin; Z79.899 Other long term (current) drug therapy; Z88.0 Allergy status to penicillin; Z88.5 Allergy status to narcotic agent; Z88.8 Allergy status to other drugs, medicaments and biological substances; Z91.048 Other nonmedicinal substance allergy status; Z79.01 Long term (current) use of anticoagulants

== ENCOUNTER → 2017-08-20 | Outpatient (CLI) | payer MEDICARE, BC | LOC: M WHC 08:35 | DX: Z12.31 Encounter for screening mammogram for malignant neoplasm of breast (principal); Z78.0 Asymptomatic menopausal state; Z80.3 Family history of malignant neoplasm of breast; Z79.890 Hormone replacement therapy | CPT/HCPCS: 77067 ==

== ENCOUNTER → 2018-08-22 | Outpatient (CLI) | payer MEDICARE, BC ==
[~2018-08-22] MED LIST changes: -ACET1TAB17 PO; +ACET1TAB55 PO; +ACET500T15 PO; -ALEN70TA39 PO; +ALEN70TA57 PO; +BUDE3CAP PO; +CHOL4PW PO; +LATA5OPD OU; +LOPE2CA PO; +PRED20TA PO; +STOO100C PO
--- NOTE | 2018-08-22 09:35 | REPMRS ---
Patient History The patient states she has not had a clinical breast exam in over a year. Patient is postmenopausal. Family history of premenopausal breast cancer at age 50 or over in sister. Benign excisional biopsy of the left breast, 1995. Took estrogen for 35 years. Digital Woman Screen Mammo: August 22, 2018 - Exam #: [id number] Bilateral CC and MLO view(s) were taken. Technologist: Naila Chan, Technologist Prior study comparison: August 20, 2017, digital woman screen mammo performed at [facility] [facility]. August 19, 2016, digital woman screen mammo performed at [facility]. August 16, 2015, digital woman screen mammo performed at [facility]. FINDINGS: There are scattered fibroglandular densities. There is a pacemaker power plant projecting over the left axilla on the MLO view. There has been no change in the appearance of the mammogram from the prior studies. There is a mild amount of scattered fibroglandular density which is fairly symmetric. There is no interval development of dominant mass, architectural distortion, or clustered microcalcification suggestive of malignancy. 3-D tomosynthesis shows no additional findings. Assessment: BI-RADS/ACR category 2 mammogram. Benign Findings. Recommendation Routine screening mammogram of both breasts in 1 year (for women over age 40). This patient's Lifetime Breast Cancer RIsk is estimated at 3.4 %. This mammogram was interpreted with the aid of an FDA-approved computer-aided dectection system. Electronically Signed By: Erik Locke MD 08/22/18 0934
== END ==
LOC: M WHC 08:24
PROVIDERS: ATTEND Family Medicine
DX: Z12.31 Encounter for screening mammogram for malignant neoplasm of breast (principal)

== ENCOUNTER → 2018-08-27 | Outpatient (REF) | payer MEDICARE, BC ==
[2018-08-27 13:07] LABS: APPEARANCE, URINE CLOUDY (CLEAR); BACTERIA, URINE AUTO 2+ (NEGATIVE); BILIRUBIN, URINE AUTO NEGATIVE (NEGATIVE); BLOOD, URINE BLOOD NEGATIVE (NEGATIVE); COLOR, URINE YELLOW (YELLOW); GLUCOSE, URINE (UA) AUTO NEGATIVE (NEGATIVE); KETONE, URINE AUTO NEGATIVE (NEGATIVE); LEUKOCYTE ESTERASE, URINE AUTO 3+ (NEGATIVE); MUCUS, URINE SMALL (NEGATIVE); NITRITE, URINE AUTO POSITIVE (NEGATIVE); PROTEIN, URINE AUTO NEGATIVE (NEGATIVE); RBC, URINE AUTO 14 /HPF (0-3); SPECIFIC GRAVITY URINE AUTO 1.016 (1.002-1.035); SQUAMOUS EPITHELIAL CELL UR AU 0 /HPF (0-6); UROBILINOGEN, URINE AUTO 0.2 mg/dL (0.0-2.0); WBC, URINE AUTO TNTC /HPF (0-3)
== END ==
LOC: M LAB REF 12:42
PROVIDERS: ATTEND Physician Assistant Medical
DX: N39.0 Urinary tract infection, site not specified (principal)

== ENCOUNTER → 2018-12-24 | Outpatient (REF) | payer MEDICARE, BC ==
[~2018-12-24] MED LIST changes: -ALEN70TA57 PO; +ALEN70TA74 PO; +LATA0.0013 OU; -LATA5OPD OU
[2018-12-24 15:46] LABS: APPEARANCE, URINE CLOUDY (CLEAR); BACTERIA, URINE AUTO 1+ (NEGATIVE); BILIRUBIN, URINE AUTO NEGATIVE (NEGATIVE); BLOOD, URINE BLOOD 1+ (NEGATIVE); COLOR, URINE YELLOW (YELLOW); GLUCOSE, URINE (UA) AUTO NEGATIVE (NEGATIVE); KETONE, URINE AUTO NEGATIVE (NEGATIVE); LEUKOCYTE ESTERASE, URINE AUTO 3+ (NEGATIVE); NITRITE, URINE AUTO NEGATIVE (NEGATIVE); PROTEIN, URINE AUTO NEGATIVE (NEGATIVE); RBC, URINE AUTO 28 /HPF (0-3); SPECIFIC GRAVITY URINE AUTO 1.012 (1.002-1.035); SQUAMOUS EPITHELIAL CELL UR AU 1 /HPF (0-6); UROBILINOGEN, URINE AUTO 0.2 mg/dL (0.0-2.0); WBC, URINE AUTO TNTC /HPF (0-3)
== END ==
LOC: M LAB REF 13:43
PROVIDERS: ATTEND Psychiatry & Neurology Psychiatry
DX: N39.0 Urinary tract infection, site not specified (principal)

== ENCOUNTER → 2019-09-08 | Outpatient (CLI) | payer MEDICARE, BC ==
[~2019-09-08] MED LIST changes: -ARTI99.0 OU; +MM S100C PO; +OMEP1CAP73 PO; -OMEP20CA3 PO; +POLYOPD OU; -STOO100C PO
--- NOTE | 2019-09-08 13:39 | REPMRS ---
Patient History The patient states she has not had a clinical breast exam in over a year. Family history of premenopausal breast cancer at age 50 or over in sister. Benign excisional biopsy of the left breast, 1995. Took estrogen for 35 years. Digital Woman Screen Mammo: September 08, 2019 - Exam #: [id number] Bilateral CC and MLO view(s) were taken. Technologist: Kellie Flores, Technologist Prior study comparison: August 22, 2018, bilateral digital woman screen mammo performed at [facility]. August 20, 2017, digital woman screen mammo performed at [facility]. August 19, 2016, digital woman screen mammo performed at [facility]. FINDINGS: There are scattered fibroglandular densities. There is a pacemaker power plant projecting over the left axilla on the MLO view. There has been no change in the appearance of the mammogram from the prior studies. There is a mild amount of scattered fibroglandular density which is fairly symmetric. There is no interval development of dominant mass, architectural distortion, or grouped microcalcification suggestive of malignancy. 3-D tomosynthesis shows no additional findings. Assessment: BI-RADS/ACR category 2 mammogram. Benign Findings. Recommendation Routine screening mammogram of both breasts in 1 year (for women over age 40). This patient's Lifetime Breast Cancer Risk is estimated at 3.0 %. This mammogram was interpreted with the aid of an FDA-approved computer-aided dectection system. Electronically Signed By: Erik Locke MD 09/08/19 [id number]
== END ==
LOC: M WHC 11:02
PROVIDERS: ATTEND Family Medicine
DX: Z12.31 Encounter for screening mammogram for malignant neoplasm of breast (principal)

== ENCOUNTER → 2019-09-20 | Outpatient (REF) | payer MEDICARE, OTHER ==
[2019-09-20 13:21] LABS: APPEARANCE, URINE HAZY (CLEAR); BACTERIA, URINE AUTO NEGATIVE (NEGATIVE); BILIRUBIN, URINE AUTO NEGATIVE (NEGATIVE); BLOOD, URINE BLOOD NEGATIVE (NEGATIVE); COLOR, URINE YELLOW (YELLOW); GLUCOSE, URINE (UA) AUTO NEGATIVE (NEGATIVE); KETONE, URINE AUTO NEGATIVE (NEGATIVE); LEUKOCYTE ESTERASE, URINE AUTO 1+ (NEGATIVE); MUCUS, URINE SMALL (NEGATIVE); NITRITE, URINE AUTO NEGATIVE (NEGATIVE); PROTEIN, URINE AUTO NEGATIVE (NEGATIVE); RBC, URINE AUTO 2 /HPF (0-3); SPECIFIC GRAVITY URINE AUTO 1.024 (1.002-1.035); SQUAMOUS EPITHELIAL CELL UR AU 2 /HPF (0-6); UROBILINOGEN, URINE AUTO 0.2 mg/dL (0.0-2.0); WBC, URINE AUTO 5 /HPF (0-3)
== END ==
LOC: M LAB REF 12:20
PROVIDERS: ATTEND Physician Assistant Medical
DX: N39.0 Urinary tract infection, site not specified (principal)

== ENCOUNTER → 2020-07-14 | Outpatient (REF) | payer MEDICARE, OTHER ==
[~2020-07-14] MED LIST changes: +ASPI-546 PO; -ASPI1TAB15 PO; +VITA-243 PO; -VITA500T PO
== END ==
LOC: M WUC 17:28
PROVIDERS: ATTEND Physician Assistant
DX: N39.0 Urinary tract infection, site not specified (principal)

== ENCOUNTER → 2020-09-09 | Outpatient (CLI) | payer MEDICARE, OTHER ==
[~2020-09-09] MED LIST changes: -ALEN70TA74 PO; +ALEN70TA82 PO; -LISI-538 PO; +LISI20TA33 PO
--- NOTE | 2020-09-09 11:40 | REPMRS ---
Patient History The patient states she has not had a clinical breast exam in over a year. Family history of premenopausal breast cancer at age 50 or over in sister. Benign excisional biopsy of the left breast, 1995. Took estrogen for 35 years. Digital Woman Screen Mammo: September 09, 2020 - Exam #: [id number] Bilateral CC and MLO view(s) were taken. Technologist: Roberta Smith, Technologist Prior study comparison: September 08, 2019, bilateral digital woman screen mammo performed at [facility]. August 22, 2018, bilateral digital woman screen mammo performed at [facility]. August 20, 2017, digital woman screen mammo performed at [facility]. FINDINGS: The breast tissue is heterogeneously dense. This may lower the sensitivity of mammography. The Volpara volumetric breast density category is: C. There is a moderate amount of heterogeneously dense fibroglandular tissue which is fairly symmetric. There is no interval development of dominant mass, architectural distortion, or grouped microcalcification typical of malignancy. There has been no change in the appearance of the mammogram from the prior studies. 3-D tomosynthesis shows no additional findings. Assessment: BI-RADS/ACR category 1 mammogram. Negative Mammogram. Recommendation Routine screening mammogram of both breasts in 1 year (for women over age 40). This patient's [facility] Lifetime Breast Cancer RIsk is estimated at 2.5 %. This mammogram was interpreted with the aid of an FDA-approved computer-aided dectection system. Electronically Signed By: Erik Locke MD 09/09/20 [id number]
== END ==
LOC: M WHC 10:21
PROVIDERS: ATTEND Family Medicine
DX: Z12.31 Encounter for screening mammogram for malignant neoplasm of breast (principal); Z80.3 Family history of malignant neoplasm of breast; Z86.018 Personal history of other benign neoplasm

== ENCOUNTER 2020-09-21 06:50 | Observation (INO) | payer MEDICARE, BC, OTHER ==
[~2020-09-21] VITALS: Ht 152.4 cm; Wt 48.0 kg
[2020-09-21] MEDS ORDERED: ESTR62CR (07:10)
[2020-09-21] MEDS ORDERED: PRED5TA PO (07:10)
[2020-09-21] MEDS ORDERED: HYDR-4514 PO (07:10)
[2020-09-21] MEDS ORDERED: OMEP-218 PO (07:10)
[2020-09-21] MEDS ORDERED: SIMB1SUS OU (07:10)
[2020-09-21] MEDS ORDERED: AMLO2.5T3 PO (07:10)
[2020-09-21] MEDS ORDERED: BETA115CR VG (07:10)
[2020-09-21] MEDS ORDERED: ROSU5TAB5 PO (07:10)
[2020-09-21] MEDS ORDERED: REST0.05 OU (07:10)
[2020-09-21] MEDS ORDERED: CIPR250T3 PO (07:10)
[2020-09-21] MEDS ORDERED: CARVedilol 6.25 MG TAB PO ONE (07:50)
[2020-09-21 08:02] LABS: BASO % 0.3 % (0.0-1.0); EOS % 0.5 % (0.0-3.0); LYMPH # 1.3 10^3/uL (1.5-5.0); LYMPH % 22.5 % (24.0-44.0); MEAN CORPUSCULAR HEMOGLOBIN 30.3 pg (27.0-33.0); MEAN CORPUSCULAR HGB CONC 31.1 g/dl (32.0-36.5); MEAN CORPUSCULAR VOLUME 97.4 fl (80.0-96.0); MONO # 0.6 10^3/uL (0.0-0.8); MONO % 10.2 % (2.0-8.0); NEUTROPHILS # 3.9 10^3/uL (1.5-8.5); NEUTROPHILS % 65.8 % (36.0-66.0); PLATELET COUNT, AUTOMATED 174 10^3/uL (150-450); RED BLOOD COUNT 4.62 10^6/uL (4.00-5.40)
[2020-09-21 08:13] LABS: INR 0.99; PARTIAL THROMBOPLASTIN TIME 31.6 SECONDS (24.2-38.5); PROTHROMBIN TIME 13.3 SECONDS (12.5-14.3)
[2020-09-21] MEDS ORDERED: POTASSIUM CHLORIDE 10 MEQ SR TABLET PO ONE (08:15)
[2020-09-21] MEDS ORDERED: METOPROLOL 5 MG/5 ML VIAL IV SCH (08:20)
[2020-09-21] MEDS ORDERED: KCL 10MEQ/100ML SWI (KRUN) 10 MEQ in IV 1 EA IV ONE (08:30)
[2020-09-21 08:38] LABS: RSV AMPLIFICATION NEGATIVE (NEGATIVE)
[2020-09-21 08:45] LABS: ALBUMIN 3.2 GM/DL (3.2-5.2); ALT/SGPT 26 U/L (12-78); BILIRUBIN,DIRECT < 0.1 MG/DL (0.0-0.2); BILIRUBIN,TOTAL 0.3 MG/DL (0.2-1.0); CK-MB VALUE MASS < 1.0 NG/ML (<3.6); CPK CREATINE PHOSPHOKINASE 66 U/L (26-192); FREE T4 0.77 NG/DL (0.76-1.46); LIPASE 108 U/L (73-393); MAGNESIUM LEVEL 1.8 MG/DL (1.8-2.4); MB/CK RELATIVE INDEX 1.52 (< OR =4); NT-PRO BNP 550 PG/ML (<450); TOTAL PROTEIN 6.7 GM/DL (6.4-8.2); TROPONIN I 0.02 NG/ML (< 0.10)
[2020-09-21] MEDS ORDERED: ISOVUE-370 76% 100ML VIAL As Ordered ONE (09:06)
[2020-09-21] MEDS ORDERED: NS 500 ML IV ONE ×2 (09:20→09:25)
[2020-09-21 09:58] LABS: FERRITIN 147 NG/ML (8-252)
--- NOTE | 2020-09-21 09:58 | REP ---
INDICATION: CHEST PAIN COMPARISON: 07/23/2018 TECHNIQUE: Portable AP view of the chest FINDINGS: The mediastinum and cardiac silhouette are stable and within normal limits for portable technique. Pacemaker in satisfactory position. The lung johnson are clear without acute consolidation, effusion, or pneumothorax. Skeletal structures are intact. IMPRESSION: No acute cardiopulmonary process appreciated. <Electronically signed by Angel Alicia > 09/21/20 [id number]
[2020-09-21 10:20] VITALS: O2SAT 92
--- NOTE | 2020-09-21 10:22 | REP ---
INDICATION: pleuritic chest pain, covid + ro PE COMPARISON: None. TECHNIQUE: Axial contrast enhanced images from the thoracic inlet to the upper abdomen using pulmonary embolus technique with multiplanar re-formations. 75 ml Isovue 370 intravenous contrast material administered without complication. This CT examination was performed using the following dose reduction techniques: Automated exposure control, adjustment of mA and/or kv according to the patient's size, and use of iterative reconstruction technique. FINDINGS: Satisfactory enhancement of the pulmonary vasculature is achieved and no filling defects are identified to suggest pulmonary embolus. Further evaluation of the mediastinum demonstrates normal thoracic aorta, heart and pericardium. Two lead pacemaker in stable satisfactory position. Lung johnson demonstrate small area of atelectasis in the deep posterior left sulcus and very small subtle areas of non solid ground-glass infiltrates along the anterior left upper lobe and basilar right upper lobe at the mid lung level. No effusion. No pneumothorax. Tracheobronchial tree is patent. No adenopathy. Osseous structures are intact. Normal bilateral adrenal glands noted. IMPRESSION: 1. No evidence for pulmonary embolus. 2. Small focus of atelectasis at the left base along with very subtle non solid areas of opacity in the upper lobes may reflect an early or resolving acute pneumonia. <Electronically signed by Angel Alicia > 09/21/20 [id number]
[2020-09-21] MEDS ORDERED: NS 1,000 ML IV SCH (10:30)
[2020-09-21 12:24] LABS: CK-MB VALUE MASS < 1.0 NG/ML (<3.6); CPK CREATINE PHOSPHOKINASE 52 U/L (26-192); MB/CK RELATIVE INDEX 1.92 (< OR =4); TROPONIN I 0.03 NG/ML (< 0.10)
[2020-09-21] MEDS ORDERED: XALA0.007 OU (13:04)
[2020-09-21] MEDS ORDERED: D31000TA2 PO (13:04)
[2020-09-21] MEDS ORDERED: CALC600T57 PO (13:04)
--- NOTE | 2020-09-21 13:24 | HPEPDOC ---
[facility] Medical History & Physical Date of Admission Sep 21, 2020 Date of Service: Sep 21, 2020 History and Physical CHIEF COMPLAINT: sore throat HISTORY OF PRESENT ILLNESS: 80-year-old female with a history of atrial fibrilla tion, sick sinus syndrome status post dual-chamber pacemaker, Grade 1 diastolic congestive heart failure, GERD, presented to the ED with t sore throat, and pleuritic chest pain. Rapid strep test was negative. Tested positive for COVID- 19 in the ER. Blood work was reviewed. EKG showed atrial fibrillation. Initial troponin was 0.02, followed by 0.03 on repeat. Patient's heart rate was controlled by carvedilol 6.25 mg by mouth as was recommended by Dr. Avina, per ED report. Patient did develop hypotension to the low 90s systolic and required fluid resuscitation to maintain her blood pressure. On ambulation patient desaturated down to 90% on room air. ED requesting hospitalist to admit for ob servation. Patient will be admitted to Covid unit for observation as well as home safety evaluation and need for oxygen qualification. Finally, patient reported to me that she was seen in PCP clinic, and started on ciprofloxacin for sinusitis. Symptoms have resolved. She is also completing a prednisone taper for neck pain, presently taking 5 mg BID. Vitals: HR 67. BP 137/63. SpO2 96%. RR 18. On repeat bedside, patient found to be hypertensive systolic 190, although she was just told that her is being admitted to hospital for covid as well. Labs: WBC 6.0. Hgb 14.0. POC Na 141. K 3.0 (replaced). Cr 1.0. Trop 0.02, 0.03. CTA did not show PE, questionable atelectasis vs early/resolving pna. CXR showing no acute abnormalities. PAST MEDICAL HISTORY: 1. Collagenous colitis 2. Atrial fibrillation 3. Gastroesophageal reflux disease 4. Sick sinus syndrome status post dual chamber pacemaker 5. Grade I diastolic congestive heart failure 6. Esophageal stricture with dilatation 7. Constipation 8. Hiatal hernia 9. Glaucoma 10. Post-menopausal vaginal dryness 11. Diverticulosis 12. Diverticulitis SOCIAL HISTORY: Patient denies smoking Patient denies etoh use Patient denies illicit drug use FAMILY HISTORY: Father: , 89, heart disease Mother: , 80, cancer Brother: , 77, throat cancer Brother: , 75, stomach cancer Sister: Alive, 89, breast cancer Sister: , 58, lung problems Brother: , 74, heart disease Sister: Alive, 71, healthy Sister: Alive, 89, healthy Brother: , 70s, lung problems ALLERGIES: Please see below. REVIEW OF SYSTEMS: 10 point review of systems was conducted, relevant findings are noted in the HPI. HOME MEDICATIONS: Please see below. PHYSICAL EXAMINATION: VITAL SIGNS: please see below General: NAD, comfortable HEENT: PERRLA, EOMI, sclerae clear Neck: supple, normal ROM, no JVD Respiratory: lungs CTAB, no wheeze, no rales, no crackles CVS: RRR, normal S1, S2, no murmurs Abdo: soft, no masses, no hepatosplenomegaly, BS+, no rebound tenderness Extremities: no edema, pulses 2+ MSK: no joint deformities, normal ROM Neuro: no focal neuro deficits, moving all 4 extremities, CN2-12 intact. Strength 5/5 in all 4 extremities. No nystagmus. Psych: calm, cooperative, AAO x 3 LABORATORY DATA: See below. IMAGING: CT Angiogram (09/21/20): IMPRESSION: 1. No evidence for pulmonary embolus. 2. Small focus of atelectasis at the left base along with very subtle non solid areas of opacity in the upper lobes may reflect an early or resolving acute pneumonia. CXR (09/21/20): IMPRESSION: No acute cardiopulmonary process appreciated. MICROBIOLOGY: Please see below. ASSESSMENT: 80-year-old female with a history of atrial fibrillation, sick sinus syndrome status post dual-chamber pacemaker, Grade 1 diastolic congestive heart failure, GERD, presented to the ED with sore throat and pleuritic chest pain. Admitted for observation to COVID-19 floor. PLAN: Covid-19 - hypoxic to 90% on RA on exertion per ED, but not requiring supplemental O2 - afebrile - does not meet criteria for remdesevir use at this time - presently taking prednisone 5 mg BID for neck pain as prescribed by her PCP, will continue, as does not qualify for dexamethasone high dose. - check inflammatory markers - procalcitonin pending - at present, patient has no cough, no fever, no leukocytosis - combivent prn. - will defer abx at this time, especially as completed course of ciprofloxacin for sinusitis. Afib - tachycardic on arrival - takes carvedilol at home, received 6.25 mg PO in the ER but developed hypotension - hypotension responded to fluid bolus - on AC with eliquis - c/w home meds - monitor on telemetry - follows with Dr. Lazcano Chest pain - now resolved - in setting of covid/questionable bacterial pna - CTA r/o PE. - trop 0.02, 0.03 - cycle trops, ekgs Dyslipidemia - c/w home meds GERD - H2 madelaine Dispo: pending clinical improvement. Vital Signs Vital Signs Date Time Temp Pulse Resp B/P (MAP) Pulse Ox O2 Delivery O2 Flow Rate FiO2 09/21/20 11:15 67 18 137/63 (87) 96 Room Air 09/21/20 07:04 99.2 Laboratory Data Labs 24H Laboratory Tests 2 09/21/20 07:47: 09/21/20 07:48: Immature Granulocyte % (Auto) 0.7, Neutrophils (%) (Auto) 65.8, Lymphocytes (%) (Auto) 22.5L, Monocytes (%) (Auto) 10.2H, Eosinophils (%) (Auto) 0.5, Basophils (%) (Auto) 0.3, Neutrophils # (Auto) 3.9, Lymphocytes # (Auto) 1.3L, Monocytes # (Auto) 0.6, Eosinophils # (Auto) 0.0, Basophils # (Auto) 0.0, Nucleated Red Blood Cells % (auto) 0.0, Prothrombin Time 13.3, Prothromb Time International Ratio 0.99, Activated Partial Thromboplast Time 31.6, Fibrinogen 600H, Magnesium Level 1.8, Ferritin 147, Total Bilirubin 0.3, Direct Bilirubin < 0.1, Aspartate Amino Transf (AST/SGOT) 24, Alanine Aminotransferase (ALT/SGPT) 26, Alkaline Phosphatase 56, Total Creatine Kinase 66, Creatine Kinase MB < 1.0, Creatine Kinase MB Relative Index 1.52, Troponin I 0.02, BQ-Mjq-L-Type Natriuretic Peptide 550H, Total Protein 6.7, Albumin 3.2, Albumin/Globulin Ratio 0.9L, Lipase 108, Thyroid Stimulating Hormone (TSH) 2.020, Free Thyroxine 0.77, Coronavirus (COVID-19)(PCR) POSITIVEA, Influenza Type A (RT-PCR) NEGATIVE, Influenza Type B (RT-PCR) NEGATIVE, Respiratory Syncytial Virus (PCR) NEGATIVE 09/21/20 07:56: POC Glucose (Misc Panel) 106H, POC Sodium (Misc Panel) 141, POC Potassium (Misc Panel) 3.0L, POC Chloride (Misc Panel) 105, POC Total CO2 (Misc Panel) 26.0, POC Blood Urea Nitrogen (Misc Panel 23, POC Ionized Calcium (Misc Panel) 4.9, POC Creatinine (Misc Panel) 1.0, POC Hematocrit (Misc Panel) 45.0 09/21/20 11:15: Total Creatine Kinase 52, Creatine Kinase MB < 1.0, Creatine Kinase MB Relative Index 1.92, Troponin I 0.03# CBC/BMP Laboratory Tests 09/21/20 07:48 Microbiology Microbiology 09/21/20 Group A Streptococcus Screen (BRITTANI), Received Pending Home Medications Scheduled Acetaminophen (Acetaminophen) 500 Mg Tab, 1,000 MG PO BID Amlodipine Besylate (Amlodipine Besylate) 2.5 Mg Tablet, 2.5 MG PO DAILY Apixaban (Eliquis) 2.5 Mg Tab, 2.5 MG PO BID Ascorbic Acid (Vitamin C) 500 Mg Tab, 500 MG PO DAILY Aspirin (Aspirin EC) 81 Mg Tab, 81 MG PO DAILY Brinzolamide/Brimonidine Tart (Simbrinza 1%-0.2% Eye Drops) 8 Ml Drops.susp, 1 DROP OU BID Calcium Carbonate/Vitamin D3 (Calcium 600-Vit D3 200 Tablet) 1 Each Tablet, 1 TAB PO DAILY Cholecalciferol (Vitamin D3) (Vitamin D3) 1,000 Unit Tablet, 1,000 UNITS PO DAILY Ciprofloxacin HCl (Ciprofloxacin HCl) 250 Mg Tablet, 250 MG PO BID Cyanocobalamin (Vitamin B-12) (Vitamin B12) 2,500 Mcg Tablet, 2,500 MCG PO DAILY Cyclosporine (Restasis) 0.05% Droperette, 1 DROP OU BID Latanoprost (Xalatan) 0.005% 2.5ML Drops, 1 DROP OU QHS Omeprazole (Omeprazole) 20 Mg Capsule.dr, 20 MG PO DAILY Prednisone (Prednisone) 5 Mg Tablet, 5 MG PO BID Rosuvastatin Calcium (Rosuvastatin Calcium) 5 Mg Tablet, 5 MG PO DAILY Scheduled PRN Hydrocodone/Acetaminophen (Hydrocodone-Acetamin 7.5-325) 1 Each Tablet, 0.75 TAB PO TID PRN for PAIN Miscellaneous Medications Betamethasone Paola (Betamethasone Valerate) 15 Gm Cream..g. Conjugated Estrogens (Premarin) 30 Gm Cream.appl Allergies Coded Allergies: red dye (Verified Allergy, Unknown, rash. hives, 09/21/20) Penicillins (Verified Adverse Reaction, Intermediate, headaches, 09/21/20) codeine (Verified Adverse Reaction, Intermediate, headaches, 09/21/20) procaine (Verified Adverse Reaction, Intermediate, headaches, 09/21/20) KEVIN BAIG MD Sep 21, 2020 13:24
[2020-09-21] MEDS ORDERED: B-122500 PO (14:00)
[2020-09-21] MEDS ORDERED: NORCO, ANEXSIA 5/325MG TABLET (HYDROcodone/ACETAMINOPHEN) PO PRN (14:50)
--- NOTE | 2020-09-21 15:22 | ECGEPIP ---
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
--- NOTE | 2020-09-21 15:27 | ECGEPIP ---
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
--- NOTE | 2020-09-21 15:27 | ECGEPIP ---
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
[2020-09-21 16:47] LABS: D-DIMER QUANT 387.85 ng/ml (<500)
[2020-09-21 17:00] VITALS: BP 172/85
[2020-09-21 17:09] LABS: C REACTIVE PROTEIN QUANTITATIV 2.27 MG/DL (0.00-0.30); TROPONIN I 0.03 NG/ML (< 0.10)
[2020-09-21 20:00] VITALS: BP 165/68
[2020-09-21] MEDS: LATANOPROST 0.005% OPHTH SOLN 2.5 ML OU SCH (20:07)
[2020-09-21] MEDS: CIPROFLOXACIN 250MG TAB PO SCH (20:07)
[2020-09-21] MEDS: predniSONE 5 MG TAB PO SCH (20:07)
[2020-09-21] MEDS: APIXABAN 2.5 MG TAB (ELIQUIS) PO SCH (20:07)
[2020-09-21] MEDS: ACETAMINOPHEN TAB 650MG DOSE (2X325MG) PO PRN (20:10)
[2020-09-22] VITALS (7 sets, daily range): BP systolic 140–202; BP diastolic 60–83
[2020-09-22 07:30] LABS: EOS % 0.2 % (0.0-3.0); HEMOGLOBIN 12.9 g/dl (12.0-15.5); LYMPH # 0.8 10^3/uL (1.5-5.0); LYMPH % 16.5 % (24.0-44.0); MEAN CORPUSCULAR HEMOGLOBIN 30.5 pg (27.0-33.0); MEAN CORPUSCULAR HGB CONC 31.5 g/dl (32.0-36.5); MEAN CORPUSCULAR VOLUME 96.9 fl (80.0-96.0); MONO # 0.6 10^3/uL (0.0-0.8); MONO % 12.6 % (2.0-8.0); NEUTROPHILS # 3.2 10^3/uL (1.5-8.5); PLATELET COUNT, AUTOMATED 171 10^3/uL (150-450); RED BLOOD COUNT 4.23 10^6/uL (4.00-5.40); WHITE BLOOD COUNT 4.6 10^3/uL (4.0-10.0)
[2020-09-22 07:42] LABS: INR 0.93; PROTHROMBIN TIME 12.7 SECONDS (12.5-14.3)
[2020-09-22 07:43] LABS: PARTIAL THROMBOPLASTIN TIME 33.8 SECONDS (24.2-38.5)
[2020-09-22 07:46] LABS: D-DIMER QUANT 495.64 ng/ml (<500)
[2020-09-22 07:56] LABS: ALBUMIN 2.9 GM/DL (3.2-5.2); BILIRUBIN,TOTAL 0.2 MG/DL (0.2-1.0); C REACTIVE PROTEIN QUANTITATIV 4.38 MG/DL (0.00-0.30); CALCIUM LEVEL 8.6 MG/DL (8.8-10.2); CREATININE FOR GFR 1.09 MG/DL (0.55-1.30); GLOMERULAR FILTRATION RATE 51.4 (>32); MAGNESIUM LEVEL 1.9 MG/DL (1.8-2.4); POTASSIUM SERUM 3.7 MEQ/L (3.5-5.1); TOTAL PROTEIN 6.1 GM/DL (6.4-8.2); TROPONIN I 0.02 NG/ML (< 0.10)
[2020-09-22] MEDS: VITAMIN D 1,000 INTERNATIONAL UNITS TABLET PO SCH (08:31)
[2020-09-22] MEDS: CIPROFLOXACIN 250MG TAB PO SCH ×2 (08:31→20:46)
[2020-09-22] MEDS: ASCORBIC ACID 500 MG TAB PO SCH (08:31)
[2020-09-22] MEDS: ROSUVASTATIN 10 MG TAB (CRESTOR) PO SCH (08:31)
[2020-09-22] MEDS: APIXABAN 2.5 MG TAB (ELIQUIS) PO SCH ×2 (08:32→20:46)
[2020-09-22] MEDS: ASPIRIN 81MG ENTERIC TABLET PO SCH (08:32)
[2020-09-22] MEDS: predniSONE 5 MG TAB PO SCH ×2 (08:32→20:46)
[2020-09-22] MEDS: CARVedilol 3.125 MG TAB PO SCH ×2 (08:32→20:47)
[2020-09-22] MEDS: CYANOCOBALAMIN 500 MCG TAB PO SCH (08:32)
[2020-09-22] MEDS: OMEPRAZOLE 20 MG CAP PO SCH (08:32)
[2020-09-22] MEDS ORDERED: BETAMETHASONE VAL 0.1% CR 15 GM TOP PRN (09:00)
[2020-09-22] MEDS: ACETAMINOPHEN TAB 650MG DOSE (2X325MG) PO PRN (09:12)
--- NOTE | 2020-09-22 09:12 | DS.PDOC ---
Discharge Summary General Date of Admission Sep 21, 2020 at 14:57 Date of Discharge 09/22/20 Discharge Summary PROCEDURES PERFORMED DURING STAY: [None]. ADMITTING DIAGNOSES: Covid-19 Afib with RVR Hypertensive urgency Chest pain dyslipidemia GERD DISCHARGE DIAGNOSES: Covid-19 Afib with RVR Hypertensive urgency Chest pain dyslipidemia GERD COMPLICATIONS/CHIEF COMPLAINT: A-Fib W/ Rapid Ventricular Response, Covid-19, Htn. HISTORY OF PRESENT ILLNESS: 80-year-old female with a history of atrial fibrillation, sick sinus syndrome status post dual-chamber pacemaker, Grade 1 diastolic congestive heart failure, GERD, presented to the ED with t sore throat, and pleuritic chest pain. Rapid strep test was negative. Tested positive for COVID-19 in the ER. Blood work was reviewed. EKG showed atrial fibrill ation. Initial troponin was 0.02, followed by 0.03 on repeat. Patient's heart rate was controlled by carvedilol 6.25 mg by mouth as was recommended by Dr. Avina, per ED report. Patient did develop hypotension to the low 90s systolic and required fluid resuscitation to maintain her blood pressure. On ambulation patient desaturated down to 90% on room air. ED requesting hospitalist to admit for observation. Patient will be admitted to Covid unit for observation as well as home safety evaluation and need for oxygen qualification. Finally, patient reported to me that she was seen in PCP clinic, and started on ciprofloxacin for sinusitis. Symptoms have resolved. She is also completing a prednisone taper for neck pain, presently taking 5 mg BID. Vitals: HR 67. BP 137/63. SpO2 96%. RR 18. On repeat bedside, patient found to be hypertensive systolic 190, although she was just told that her is being admitted to hospital for covid as well. Labs: WBC 6.0. Hgb 14.0. POC Na 141. K 3.0 (replaced). Cr 1.0. Trop 0.02, 0.03. CTA did not show PE, questionable atelectasis vs early/resolving pna. CXR showing no acute abnormalities. HOSPITAL COURSE: Covid-19 - hypoxic to 90% on RA on exertion per ED, but not requiring supplemental O2 - afebrile - does not meet criteria for remdesevir use at this time - presently taking prednisone 5 mg BID for neck pain as prescribed by her PCP, will continue, as does not qualify for dexamethasone high dose. - check inflammatory markers. D-dimer wnl. CRP trending up. - procalcitonin pending - at present, patient has no cough, no fever, no leukocytosis. Ambulating on RA at 96%. - combivent prn. - will defer additional abx at this time, especially as completing course of ciprofloxacin for sinusitis. Afib with RVR - tachycardic on arrival - takes carvedilol at home, received 6.25 mg PO in the ER but developed hypotension - hypotension responded to fluid bolus - on AC with eliquis 2.5 mg bid - c/w home meds - monitor on telemetry, no overnight events - start coreg 3.125 mg BID due to elevated BP on day of DC. - follows with Dr. Lazcano Chest pain - now resolved - in setting of covid/questionable bacterial pna - CTA r/o PE. - trop 0.02, 0.03. 0.03. 0.02. 0.02. - cycle trops - EKG showing ventricular paced rhythm. No ischemic findings. Hypertensive urgency - received carvedilol 6.25 mg PO in ER, developed hypotension that responded to IVF - amlodipine 5 mg daily - add coreg 3.125 mg BID and close follow up with PCP. Dyslipidemia - c/w home meds GERD - H2 madelaine DISCHARGE MEDICATIONS: Please see below. ALLERGIES: Please see below. PHYSICAL EXAMINATION ON DISCHARGE: VITAL SIGNS: please see below General: NAD, comfortable HEENT: PERRLA, EOMI, sclerae clear Neck: supple, normal ROM, no JVD Respiratory: lungs CTAB, no wheeze, no rales, no crackles CVS: RRR, normal S1, S2, no murmurs Abdo: soft, no masses, no hepatosplenomegaly, BS+, no rebound tenderness Extremities: no edema, pulses 2+ MSK: no joint deformities, normal ROM Neuro: no focal neuro deficits, moving all 4 extremities, CN2-12 intact. Strength 5/5 in all 4 extremities. No nystagmus. Psych: calm, cooperative, AAO x 3 LABORATORY DATA: Please see below. IMAGING: CT angiogram (09/21/20): 1. No evidence for pulmonary embolus. 2. Small focus of atelectasis at the left base along with very subtle non solid areas of opacity in the upper lobes may reflect an early or resolving acute pneumonia. PROGNOSIS: good ACTIVITY: As tolerated DIET: 2g sodium DISCHARGE PLAN: DC home with PCP follow up. Follow up with Dr. Lazcano in cardiology clinic in 1-2 weeks. No qualification for O2. C/w prednisone taper, ciprofloxacin as prescribed by PCP. DISPOSITION: Home DISCHARGE INSTRUCTIONS: . Please follow-up with your primary care doctor within 3-5 days . Please follow-up with Dr. Lazcano within 1-2 weeks . Please taking medications as prescribed. . If you develop bleeding, chest pain, shortness of breath, seizures, nausea, fevers, or otherwise worsening of your symptoms, please call 911 or return to the nearest emergency room DISCHARGE CONDITION: Stable TIME SPENT ON DISCHARGE: 35 minutes Vital Signs/I&Os Vital Signs Date Time Temp Pulse Resp B/P (MAP) Pulse Ox O2 Delivery O2 Flow Rate FiO2 09/22/20 08:32 78 170/72 09/22/20 08:00 96.3 19 95 Room Air I&O- Last 24 Hours up to 6 AM 09/22/20 06:00 Intake Total 1200 ml Output Total 1300 ml Balance -100 ml Laboratory Data Labs 24H Laboratory Tests 2 09/21/20 11:15: Total Creatine Kinase 52, Creatine Kinase MB < 1.0, Creatine Kinase MB Relative Index 1.92, Troponin I 0.03# 09/21/20 16:22: Troponin I 0.03, Erythrocyte Sedimentation Rate 44H, Fibrinogen 540H, D-Dimer, Quantitative 387.85, Lactate Dehydrogenase 204, C-Reactive Protein, Quantitative 2.27H 09/21/20 22:22: Troponin I 0.02# 09/22/20 07:02: Total Creatine Kinase 47, Troponin I 0.02, Fibrinogen 593H, D-Dimer, Quantitative 495.64, Lactate Dehydrogenase 225, C-Reactive Protein, Quantitative 4.38H, Immature Granulocyte % (Auto) 0.7, Neutrophils (%) (Auto) 70.0H, Lymphocytes (%) (Auto) 16.5L, Monocytes (%) (Auto) 12.6H, Eosinophils (%) (Auto) 0.2, Basophils (%) (Auto) 0.0, Neutrophils # (Auto) 3.2, Lymphocytes # (Auto) 0.8L, Monocytes # (Auto) 0.6, Eosinophils # (Auto) 0.0, Basophils # (Auto) 0.0, Nucleated Red Blood Cells % (auto) 0.0, Prothrombin Time 12.7, Prothromb Time International Ratio 0.93, Activated Partial Thromboplast Time 33.8, Anion Gap 5L, Glomerular Filtration Rate 51.4, Calcium Level 8.6L, Magnesium Level 1.9, Ferritin 188, Total Bilirubin 0.2, Aspartate Amino Transf (AST/SGOT) 16, Alanine Aminotransferase (ALT/SGPT) 21, Alkaline Phosphatase 49, Total Protein 6.1L, Albumin 2.9L, Albumin/Globulin Ratio 0.9L CBC/BMP Laboratory Tests 09/22/20 07:02 Microbiology Microbiology 09/21/20 Group A Streptococcus Screen (BRITTANI) - Final, Complete Discharge Medications Scheduled Acetaminophen (Acetaminophen) 500 Mg Tab, 1,000 MG PO BID, (Reported) Amlodipine Besylate (Amlodipine Besylate) 2.5 Mg Tablet, 2.5 MG PO DAILY, (Reported) Apixaban (Eliquis) 2.5 Mg Tab, 2.5 MG PO BID, (Reported) Ascorbic Acid (Vitamin C) 500 Mg Tab, 500 MG PO DAILY, (Reported) Aspirin (Aspirin EC) 81 Mg Tab, 81 MG PO DAILY, (Reported) Brinzolamide/Brimonidine Tart (Simbrinza 1%-0.2% Eye Drops) 8 Ml Drops.susp, 1 DROP OU BID, (Reported) Calcium Carbonate/Vitamin D3 (Calcium 600-Vit D3 200 Tablet) 1 Each Tablet, 1 TAB PO DAILY, (Reported) Cholecalciferol (Vitamin D3) (Vitamin D3) 1,000 Unit Tablet, 1,000 UNITS PO DAILY, (Reported) Ciprofloxacin HCl (Ciprofloxacin HCl) 250 Mg Tablet, 250 MG PO BID, (Reported) Cyanocobalamin (Vitamin B-12) (Vitamin B12) 2,500 Mcg Tablet, 2,500 MCG PO DAILY, (Reported) Cyclosporine (Restasis) 0.05% Droperette, 1 DROP OU BID, (Reported) Latanoprost (Xalatan) 0.005% 2.5ML Drops, 1 DROP OU QHS, (Reported) Omeprazole (Omeprazole) 20 Mg Capsule.dr, 20 MG PO DAILY, (Reported) Prednisone (Prednisone) 5 Mg Tablet, 5 MG PO BID, (Reported) Rosuvastatin Calcium (Rosuvastatin Calcium) 5 Mg Tablet, 5 MG PO DAILY, (Re ported) Scheduled PRN Betamethasone Paola (Betamethasone Valerate) 15 Gm Cream..g., 1 DOSE VG DAILY PRN for DRYNESS, (Reported) Hydrocodone/Acetaminophen (Hydrocodone-Acetamin 7.5-325) 1 Each Tablet, 0.75 TAB PO TID PRN for PAIN, (Reported) Miscellaneous Medications Conjugated Estrogens (Premarin) 30 Gm Cream.appl, (Reported) Allergies Coded Allergies: red dye (Verified Allergy, Unknown, rash. hives, 09/21/20) Penicillins (Verified Adverse Reaction, Intermediate, headaches, 09/21/20) codeine (Verified Adverse Reaction, Intermediate, headaches, 09/21/20) procaine (Verified Adverse Reaction, Intermediate, headaches, 09/21/20) KEVIN BAIG MD Sep 22, 2020 09:12
[2020-09-22] MEDS ORDERED: CARV3.12 PO (09:30)
[2020-09-22] MEDS: NORCO, ANEXSIA 5/325MG TABLET (HYDROcodone/ACETAMINOPHEN) PO PRN ×2 (09:58→20:59)
[2020-09-22] MEDS: LATANOPROST 0.005% OPHTH SOLN 2.5 ML OU SCH (20:47)
[2020-09-23 00:04] VITALS: BP 162/74
[2020-09-23 06:00] VITALS: BP 165/69
[2020-09-23 06:25] LABS: BASO % 0.2 % (0.0-1.0); HEMATOCRIT 37.7 % (36.0-47.0); HEMOGLOBIN 11.9 g/dl (12.0-15.5); LYMPH # 0.8 10^3/uL (1.5-5.0); LYMPH % 14.8 % (24.0-44.0); MEAN CORPUSCULAR HEMOGLOBIN 30.8 pg (27.0-33.0); MEAN CORPUSCULAR HGB CONC 31.6 g/dl (32.0-36.5); MEAN CORPUSCULAR VOLUME 97.7 fl (80.0-96.0); MONO # 0.6 10^3/uL (0.0-0.8); MONO % 11.1 % (2.0-8.0); NEUTROPHILS % 73.4 % (36.0-66.0); PLATELET COUNT, AUTOMATED 166 10^3/uL (150-450); RED BLOOD COUNT 3.86 10^6/uL (4.00-5.40); WHITE BLOOD COUNT 5.5 10^3/uL (4.0-10.0)
[2020-09-23 06:46] LABS: ALBUMIN 2.5 GM/DL (3.2-5.2); ALT/SGPT 19 U/L (12-78); BILIRUBIN,TOTAL 0.2 MG/DL (0.2-1.0); BLOOD UREA NITROGEN 26 MG/DL (7-18); CALCIUM LEVEL 8.5 MG/DL (8.8-10.2); CARBON DIOXIDE LEVEL 29 MEQ/L (21-32); CHLORIDE LEVEL 109 MEQ/L (98-107); CREATININE FOR GFR 0.91 MG/DL (0.55-1.30); GLOMERULAR FILTRATION RATE > 60.0 (>32); GLUCOSE, FASTING 104 MG/DL (70-100); MAGNESIUM LEVEL 1.9 MG/DL (1.8-2.4); POTASSIUM SERUM 4.2 MEQ/L (3.5-5.1); SODIUM LEVEL 143 MEQ/L (136-145); TOTAL PROTEIN 5.5 GM/DL (6.4-8.2)
[2020-09-23 08:36] VITALS: BP 159/68
[2020-09-23] MEDS: ROSUVASTATIN 10 MG TAB (CRESTOR) PO SCH (08:37)
[2020-09-23] MEDS: OMEPRAZOLE 20 MG CAP PO SCH (08:37)
[2020-09-23] MEDS: predniSONE 5 MG TAB PO SCH ×2 (08:37→20:06)
[2020-09-23] MEDS: ASCORBIC ACID 500 MG TAB PO SCH (08:37)
[2020-09-23] MEDS: APIXABAN 2.5 MG TAB (ELIQUIS) PO SCH ×2 (08:37→20:06)
[2020-09-23] MEDS: CYANOCOBALAMIN 500 MCG TAB PO SCH (08:37)
[2020-09-23] MEDS: CIPROFLOXACIN 250MG TAB PO SCH ×2 (08:38→20:06)
[2020-09-23] MEDS: ASPIRIN 81MG ENTERIC TABLET PO SCH (08:38)
[2020-09-23] MEDS: VITAMIN D 1,000 INTERNATIONAL UNITS TABLET PO SCH (08:38)
[2020-09-23] MEDS: NORCO, ANEXSIA 5/325MG TABLET (HYDROcodone/ACETAMINOPHEN) PO PRN ×2 (08:39→20:07)
[2020-09-23] MEDS: CARVedilol 3.125 MG TAB PO SCH ×2 (08:39→20:06)
[2020-09-23] MEDS: ACETAMINOPHEN TAB 650MG DOSE (2X325MG) PO PRN ×2 (08:43→20:07)
[2020-09-23 13:52] VITALS: BP 149/67
[2020-09-23] MEDS ORDERED: HYDR-3715 PO (17:49)
--- NOTE | 2020-09-23 18:04 | IPNPDOC ---
Date Seen The patient was seen on 09/23/20. Progress Note SUBJECTIVE: Patient was seen and examined at bedside this morning. Doing well. No acute events overnight. Saturating above 95% on room air, exertion or at rest. Denies any chest pain, seizures of breath, nausea, vomiting, diarrhea, fevers or chills. OBJECTIVE PHYSICAL EXAMINATION: VITAL SIGNS: please see below General: NAD, comfortable HEENT: PERRLA, EOMI, sclerae clear Neck: supple, normal ROM, no JVD Respiratory: lungs CTAB, no wheeze, no rales, no crackles CVS: RRR, normal S1, S2, no murmurs Abdo: soft, no masses, no hepatosplenomegaly, BS+, no rebound tenderness Extremities: no edema, pulses 2+ MSK: no joint deformities, normal ROM Neuro: no focal neuro deficits, moving all 4 extremities, CN2-12 intact. Strength 5/5 in all 4 extremities. No nystagmus. Psych: calm, cooperative, AAO x 3 LABORATORY DATA, IMAGING STUDIES, MICROBIOLOGY: Please see below. DVT prophylaxis ordered?: eliquis ASSESSMENT: 80-year-old female with a history of atrial fibrillation, sick sinus syndrome status post dual-chamber pacemaker, Grade 1 diastolic congestive heart failure, GERD, presented to the ED with sore throat and pleuritic chest pain. Admitted for observation to [place] [id number] floor. PLAN: [facility]- - hypoxic to 90% on RA on exertion per ED, but not requiring supplemental O2 - afebrile - does not meet criteria for remdesevir use at this time - presently taking prednisone 5 mg BID for neck pain as prescribed by her PCP, will continue, as does not qualify for dexamethasone high dose. - check inflammatory markers. D-dimer wnl. CRP trending up. - procalcitonin pending - at present, patient has no cough, no fever, no leukocytosis. Ambulating on RA at 96%. - combivent prn. - will defer additional abx at this time, especially as completing course of ciprofloxacin for sinusitis. Afib with RVR - tachycardic on arrival - takes carvedilol at home, received 6.25 mg PO in the ER but developed hypotension - hypotension responded to fluid bolus - on AC with eliquis 2.5 mg bid - c/w home meds - monitor on telemetry, no overnight events - start coreg 3.125 mg BID due to elevated BP on day of DC. - follows with Dr. Lazcano Chest pain - now resolved - in setting of covid/questionable bacterial pna - CTA r/o PE. - trop 0.02, 0.03. 0.03. 0.02. 0.02. - cycle trops - EKG showing ventricular paced rhythm. No ischemic findings. Hypertensive urgency - received carvedilol 6.25 mg PO in ER, developed hypotension that responded to IVF - amlodipine 5 mg daily - add coreg 3.125 mg BID and close follow up with PCP. Dyslipidemia - c/w home meds GERD - H2 madelaine Dispo: ready for DC, unable to find transport until 08/27/20 at 4 pm. VS, I&O, 24H, Fishbone Vital Signs/I&O Vital Signs Date Time Temp Pulse Resp B/P (MAP) Pulse Ox O2 Delivery O2 Flow Rate FiO2 09/23/20 13:52 98.7 90 18 149/67 (94) 96 Room Air I&O- Last 24 Hours up to 6 AM 09/23/20 06:00 Intake Total 1200 ml Output Total 250 ml Balance 950 ml Laboratory Data 24H LABS Laboratory Tests 2 09/23/20 05:29: Immature Granulocyte % (Auto) 0.5, Neutrophils (%) (Auto) 73.4H, Lymphocytes (%) (Auto) 14.8L, Monocytes (%) (Auto) 11.1H, Eosinophils (%) (Auto) 0.0, Basophils (%) (Auto) 0.2, Neutrophils # (Auto) 4.0, Lymphocytes # (Auto) 0.8L, Monocytes # (Auto) 0.6, Eosinophils # (Auto) 0.0, Basophils # (Auto) 0.0, Nucleated Red Blood Cells % (auto) 0.0, Anion Gap 5L, Glomerular Filtration Rate > 60.0, Calcium Level 8.5L, Magnesium Level 1.9, Total Bilirubin 0.2, Aspartate Amino Transf (AST/SGOT) 16, Alanine Aminotransferase (ALT/SGPT) 19, Alkaline Phosphatase 42L, Total Protein 5.5L, Albumin 2.5L, Albumin/Globulin Ratio 0.8L 09/23/20 11:56: Lab Scanned Report Miscellaneous Lab CBC/BMP Laboratory Tests 09/23/20 05:29 Microbiology Microbiology 09/21/20 Group A Streptococcus Screen (BRITTANI) - Final, Complete KEVIN BAIG MD Sep 23, 2020 18:04
[2020-09-23 20:00] VITALS: BP 146/67
[2020-09-23] MEDS: LATANOPROST 0.005% OPHTH SOLN 2.5 ML OU SCH (20:06)
[2020-09-24 04:00] VITALS: BP 148/68
[2020-09-24 05:43] LABS: BASO % 0.2 % (0.0-1.0); HEMOGLOBIN 12.9 g/dl (12.0-15.5); LYMPH # 0.9 10^3/uL (1.5-5.0); LYMPH % 13.8 % (24.0-44.0); MEAN CORPUSCULAR HEMOGLOBIN 30.9 pg (27.0-33.0); MEAN CORPUSCULAR HGB CONC 31.5 g/dl (32.0-36.5); MEAN CORPUSCULAR VOLUME 98.3 fl (80.0-96.0); MONO # 0.6 10^3/uL (0.0-0.8); MONO % 9.9 % (2.0-8.0); NEUTROPHILS # 4.8 10^3/uL (1.5-8.5); NEUTROPHILS % 75.6 % (36.0-66.0); PLATELET COUNT, AUTOMATED 205 10^3/uL (150-450); RED BLOOD COUNT 4.17 10^6/uL (4.00-5.40); WHITE BLOOD COUNT 6.4 10^3/uL (4.0-10.0)
[2020-09-24 06:16] LABS: ALBUMIN 2.8 GM/DL (3.2-5.2); ALT/SGPT 21 U/L (12-78); BILIRUBIN,TOTAL 0.2 MG/DL (0.2-1.0); BLOOD UREA NITROGEN 26 MG/DL (7-18); CALCIUM LEVEL 8.7 MG/DL (8.8-10.2); CARBON DIOXIDE LEVEL 28 MEQ/L (21-32); CHLORIDE LEVEL 111 MEQ/L (98-107); GLOMERULAR FILTRATION RATE > 60.0 (>32); GLUCOSE, FASTING 111 MG/DL (70-100); MAGNESIUM LEVEL 1.9 MG/DL (1.8-2.4); SODIUM LEVEL 145 MEQ/L (136-145); TOTAL PROTEIN 6.1 GM/DL (6.4-8.2)
[2020-09-24] MEDS: CIPROFLOXACIN 250MG TAB PO SCH (07:58)
[2020-09-24] MEDS: NORCO, ANEXSIA 5/325MG TABLET (HYDROcodone/ACETAMINOPHEN) PO PRN (07:58)
[2020-09-24] MEDS: ACETAMINOPHEN TAB 650MG DOSE (2X325MG) PO PRN (07:58)
[2020-09-24] MEDS: VITAMIN D 1,000 INTERNATIONAL UNITS TABLET PO SCH (07:58)
[2020-09-24] MEDS: CYANOCOBALAMIN 500 MCG TAB PO SCH (07:59)
[2020-09-24] MEDS: ASPIRIN 81MG ENTERIC TABLET PO SCH (07:59)
[2020-09-24 08:00] VITALS: BP 195/90
[2020-09-24] MEDS: ASCORBIC ACID 500 MG TAB PO SCH (08:00)
[2020-09-24] MEDS: APIXABAN 2.5 MG TAB (ELIQUIS) PO SCH (08:00)
[2020-09-24] MEDS: OMEPRAZOLE 20 MG CAP PO SCH (08:00)
[2020-09-24] MEDS: predniSONE 5 MG TAB PO SCH (08:00)
[2020-09-24] MEDS: CARVedilol 3.125 MG TAB PO SCH (08:00)
[2020-09-24] MEDS: ROSUVASTATIN 10 MG TAB (CRESTOR) PO SCH (08:01)
[2020-09-24 08:10] VITALS: BP 185/90
[2020-09-24 08:17] VITALS: BP 158/88
--- NOTE | 2020-09-24 10:53 | DS.PDOC ---
Discharge Summary General Date of Admission Sep 21, 2020 at 14:57 Date of Discharge 09/24/20 Primary Care Physician: Yane Loo Attending Physician: ADDI FLORIAN MD Discharge Summary PROCEDURES PERFORMED DURING STAY: [None]. ADMITTING DIAGNOSES: 1. Covid-19 2. Atrial Fibrillation with RVR 3. Hypertensive Urgency 4. GERD 5. Dyslipidemia 6. Chest Pain DISCHARGE DIAGNOSES: 1. Covid-19 2. Atrial Fibrillation with RVR 3. Hypertensive Urgency 4. GERD 5. Dyslipidemia 6. Chest Pain COMPLICATIONS/CHIEF COMPLAINT: A-Fib W/ Rapid Ventricular Response, Covid-19, Htn. HISTORY OF PRESENT ILLNESS: Patient is an 80-year-old female with a past medical history significant for atrial fibrillation, sick sinus syndrome status post dual-chamber pacemaker, Grade 1 diastolic congestive heart failure, and GERD who presented to the [facility] ED with a complaint of sore throat and pleuritic chest pain. Rapid strep test performed in ER was negative. COVID-19 test performed in ER and resulted positive. Patient had received an EKG in the ER which demonstrated atrial fibrillation with RVR. She was given Carvedilol 6.25mg PO with appropriate rate control. Patient was noted to have desaturations with ambulation and was admitted to the COVID unit for observation. HOSPITAL COURSE: During hospitalization patient demonstrated improvement. She did not require any supplemental oxygen and remained afebrile. She was continued on her Eliquis for anticoagulation as well as Carvedilol. She was found to be medically optimized for discharge. She had transportation issues and the patients discharge was scheduled for 08/27/20 at 1600 hrs. DISCHARGE MEDICATIONS: Please see below. ALLERGIES: Please see below. PHYSICAL EXAMINATION ON DISCHARGE: VITAL SIGNS: Please see below. GENERAL: Awake, alert, and oriented. Appears in no acute distress. Sitting up in bed comfortably HEENT: Atraumatic, normocephalic. Eyes are nonicteric. Trachea is midline CARDIOVASCULAR EXAMINATION: Normal S1, S2. Irregularly irregular rhythm. regular rate. No clicks, rubs, or murmurs RESPIRATORY EXAMINATION: Clear breath sounds bilaterally. No wheezes, rhonchi, or rales ABDOMINAL EXAMINATION: Soft, nondistended. Nontender. Normoactive bowel sounds EXTREMITIES: No edema. 2+ PT and DP pulses bilaterally SKIN: No rashes or lesions NEUROLOGICAL EXAMINATION: No focal neurological deficits PSYCHIATRIC EXAMINATION: Mood and affect appear appropriate LABORATORY DATA: Please see below. IMAGING: INDICATION: CHEST PAIN COMPARISON: 07/23/2018 TECHNIQUE: Portable AP view of the chest FINDINGS: The mediastinum and cardiac silhouette are stable and within normal limits for portable technique. Pacemaker in satisfactory position. The lung johnson are clear without acute consolidation, effusion, or pneumothorax. Skeletal structures are intact. IMPRESSION: No acute cardiopulmonary process appreciated. <Electronically signed by Angel Alicia > 09/21/20 [id number] INDICATION: pleuritic chest pain, covid + ro PE COMPARISON: None. TECHNIQUE: Axial contrast enhanced images from the thoracic inlet to the upper abdomen using pulmonary embolus technique with multiplanar re-formations. 75 ml Isovue 370 intravenous contrast material administered without complication. This CT examination was performed using the following dose reduction techniques: Automated exposure control, adjustment of mA and/or kv according to the patient's size, and use of iterative reconstruction technique. FINDINGS: Satisfactory enhancement of the pulmonary vasculature is achieved and no filling defects are identified to suggest pulmonary embolus. Further evaluation of the mediastinum demonstrates normal thoracic aorta, heart and pericardium. Two lead pacemaker in stable satisfactory position. Lung johnson demonstrate small area of atelectasis in the deep posterior left sulcus and very small subtle areas of non solid ground-glass infiltrates along the anterior left upper lobe and basilar right upper lobe at the mid lung level. No effusion. No pneumothorax. Tracheobronchial tree is patent. No adenopathy. Osseous structures are intact. Normal bilateral adrenal glands noted. IMPRESSION: 1. No evidence for pulmonary embolus. 2. Small focus of atelectasis at the left base along with very subtle non solid areas of opacity in the upper lobes may reflect an early or resolving acute pneumonia. <Electronically signed by Angel Alicia > 09/21/20 1018 PROGNOSIS: Good ACTIVITY: [As tolerated]. DIET: As tolerated DISCHARGE PLAN: Patient is to be discharged home with follow-up with PCP in 3-5 days. She is to follow-up with her [employer] in 1-2 weeks. She is to return to the ED if her symptoms return or worsen DISCHARGE CONDITION: [Stable]. TIME SPENT ON DISCHARGE: 35 minutes. Vital Signs/I&Os Vital Signs Date Time Temp Pulse Resp B/P (MAP) Pulse Ox O2 Delivery O2 Flow Rate FiO2 09/24/20 08:45 18 09/24/20 08:17 158/88 (111) 09/24/20 08:10 99.0 65 99 Room Air I&O- Last 24 Hours up to 6 AM 09/24/20 06:00 Intake Total 1080 ml Output Total 1050 ml Balance 30 ml Laboratory Data Labs 24H Laboratory Tests 2 09/23/20 11:56: Lab Scanned Report Miscellaneous Lab 09/24/20 05:27: Immature Granulocyte % (Auto) 0.5, Neutrophils (%) (Auto) 75.6H, Lymphocytes (%) (Auto) 13.8L, Monocytes (%) (Auto) 9.9H, Eosinophils (%) (Auto) 0.0, Basophils (%) (Auto) 0.2, Neutrophils # (Auto) 4.8, Lymphocytes # (Auto) 0.9L, Monocytes # (Auto) 0.6, Eosinophils # (Auto) 0.0, Basophils # (Auto) 0.0, Nucleated Red Blood Cells % (auto) 0.0, Anion Gap 6L, Glomerular Filtration Rate > 60.0, Calcium Level 8.7L, Magnesium Level 1.9, Total Bilirubin 0.2, Aspartate Amino Transf (AST/SGOT) 13, Alanine Aminotransferase (ALT/SGPT) 21, Alkaline Phosphatase 47, Total Protein 6.1L, Albumin 2.8L, Albumin/Globulin Ratio 0.8L CBC/BMP Laboratory Tests 09/24/20 05:27 Microbiology Microbiology 09/21/20 Group A Streptococcus Screen (BRITTANI) - Final, Complete Discharge Medications Scheduled Acetaminophen (Acetaminophen) 500 Mg Tab, 1,000 MG PO BID, (Reported) Amlodipine Besylate (Amlodipine Besylate) 2.5 Mg Tablet, 2.5 MG PO DAILY, (Reported) Apixaban (Eliquis) 2.5 Mg Tab, 2.5 MG PO BID, (Reported) Ascorbic Acid (Vitamin C) 500 Mg Tab, 500 MG PO DAILY, (Reported) Aspirin (Aspirin EC) 81 Mg Tab, 81 MG PO DAILY, (Reported) Brinzolamide/Brimonidine Tart (Simbrinza 1%-0.2% Eye Drops) 8 Ml Drops.susp, 1 DROP OU BID, (Reported) Calcium Carbonate/Vitamin D3 (Calcium 600-Vit D3 200 Tablet) 1 Each Tablet, 1 TAB PO DAILY, (Reported) Carvedilol (Carvedilol) 3.125 Mg Tablet, 3.125 MG PO Q12H Cholecalciferol (Vitamin D3) (Vitamin D3) 1,000 Unit Tablet, 1,000 UNITS PO DAILY, (Reported) Ciprofloxacin HCl (Ciprofloxacin HCl) 250 Mg Tablet, 250 MG PO BID, (Reported) Cyanocobalamin (Vitamin B-12) (Vitamin B12) 2,500 Mcg Tablet, 2,500 MCG PO DAILY, (Reported) Cyclosporine (Restasis) 0.05% Droperette, 1 DROP OU BID, (Reported) Latanoprost (Xalatan) 0.005% 2.5ML Drops, 1 DROP OU QHS, (Reported) Omeprazole (Omeprazole) 20 Mg Capsule.dr, 20 MG PO DAILY, (Reported) Prednisone (Prednisone) 5 Mg Tablet, 5 MG PO BID, (Reported) Rosuvastatin Calcium (Rosuvastatin Calcium) 5 Mg Tablet, 5 MG PO DAILY, (R eported) Scheduled PRN Betamethasone Paola (Betamethasone Valerate) 15 Gm Cream..g., 1 DOSE VG DAILY PRN for DRYNESS, (Reported) Hydrocodone/Acetaminophen (Hydrocodone-Acetamin 5-325 mg) 1 Each Tablet, 1 TAB PO TID PRN for MILD/MODERATE PAIN (PS 1-7) Miscellaneous Medications Conjugated Estrogens (Premarin) 30 Gm Cream.appl, (Reported) Allergies Coded Allergies: red dye (Verified Allergy, Unknown, rash. hives, 09/21/20) Penicillins (Verified Adverse Reaction, Intermediate, headaches, 09/21/20) codeine (Verified Adverse Reaction, Intermediate, headaches, 09/21/20) procaine (Verified Adverse Reaction, Intermediate, headaches, 09/21/20) GME ATTESTATION GME ATTESTATION My faculty preceptor for this patient encounter was physically present during the encounter and was fully available. All aspects of the patient interview, examination, medical decision making process, and medical care plan development were reviewed and approved by the faculty preceptor. The faculty preceptor is aware and concurs with the plan as stated in the body of this note and will attest to such by his/her cosignature. ATTENDING NOTE I, Addi Florian, have independently examined this patient and performed my own physical exam, as well as reviewed the documentation and edited where necessary. I have discussed in detail with the resident / student the findings and plan of treatment as documented by the resident / student and edited their note. I agree with their findings and treatment plan and have edited their documentation. I will continue to follow the patient during this hospital stay. Time spent on discharge 35 minutes VICTORIA CHOW DO Sep 24, 2020 10:53 ADDI FLORIAN MD Sep 24, 2020 11:02
== END 2020-09-24 15:30 | disposition home health service (06) ==
LOC: M ED 06:50 → M ED INP 14:57 → ENRESERV 15:11 → M 4MAIN 17:40
PROVIDERS: ADMIT Family Medicine; ATTEND Family Medicine
DX: U07.1 COVID-19 (principal); I48.91 Unspecified atrial fibrillation; I16.0 Hypertensive urgency; K21.9 Gastro-esophageal reflux disease without esophagitis; E78.49 Other hyperlipidemia; R07.9 Chest pain, unspecified; I50.30 Unspecified diastolic (congestive) heart failure; I11.0 Hypertensive heart disease with heart failure; Z95.0 Presence of cardiac pacemaker; I49.5 Sick sinus syndrome; Z79.01 Long term (current) use of anticoagulants; Z79.899 Other long term (current) drug therapy; Z79.82 Long term (current) use of aspirin; Z88.0 Allergy status to penicillin; Z88.5 Allergy status to narcotic agent; Z88.4 Allergy status to anesthetic agent; K44.9 Diaphragmatic hernia without obstruction or gangrene; K59.00 Constipation, unspecified
CPT/HCPCS: 36415; 71045; 71275; 80047; 80053; 80076; 82550; 82553; 82728; 83615; 83690; 83735; 83880; 84145; 84439; 84443; 84484; 85025; 85379; 85384; 85610; 85652; 85730; 86140; 87631; 87880; 93005; 93041; 96361; 96374; 97161; 99285; G0378; Q9967

== ENCOUNTER 2020-10-09 08:56 | Emergency (ER) | payer MEDICARE, BC, OTHER ==
[~2020-10-09] VITALS: Ht 152.4 cm; Wt 47.2 kg
[~2020-10-09 08:56] MED LIST changes: +AMLO2.5T3 PO; +B-122500 PO; +BETA115CR VG; +CALC600T57 PO; +CIPR250T3 PO; +D31000TA2 PO; +ESTR62CR; +HYDR-3715 PO; +HYDR-4514 PO; +OMEP-218 PO; +PRED5TA PO; +ROSU5TAB5 PO; +SIMB1SUS OU; +XALA0.007 OU
[2020-10-09 09:58] LABS: BASO # 0.1 10^3/uL (0.0-0.2); BASO % 0.6 % (0.0-1.0); EOS # 0.1 10^3/uL (0.0-0.5); EOS % 1.2 % (0.0-3.0); HEMATOCRIT 40.5 % (36.0-47.0); HEMOGLOBIN 12.9 g/dl (12.0-15.5); LYMPH # 1.7 10^3/uL (1.5-5.0); LYMPH % 17.9 % (24.0-44.0); MEAN CORPUSCULAR HEMOGLOBIN 31.4 pg (27.0-33.0); MEAN CORPUSCULAR HGB CONC 31.9 g/dl (32.0-36.5); MEAN CORPUSCULAR VOLUME 98.5 fl (80.0-96.0); MONO # 1.2 10^3/uL (0.0-0.8); MONO % 12.7 % (2.0-8.0); NEUTROPHILS # 6.3 10^3/uL (1.5-8.5); NEUTROPHILS % 67.3 % (36.0-66.0); PLATELET COUNT, AUTOMATED 348 10^3/uL (150-450); RED BLOOD COUNT 4.11 10^6/uL (4.00-5.40); WHITE BLOOD COUNT 9.4 10^3/uL (4.0-10.0)
[2020-10-09 10:17] LABS: BLOOD UREA NITROGEN 13 MG/DL (7-18); CALCIUM LEVEL 9.5 MG/DL (8.8-10.2); CARBON DIOXIDE LEVEL 29 MEQ/L (21-32); CHLORIDE LEVEL 109 MEQ/L (98-107); CREATININE FOR GFR 0.91 MG/DL (0.55-1.30); GLOMERULAR FILTRATION RATE > 60.0 (>32); GLUCOSE, FASTING 109 MG/DL (70-100); POTASSIUM SERUM 3.6 MEQ/L (3.5-5.1); SODIUM LEVEL 145 MEQ/L (136-145)
[2020-10-09 11:16] LABS: APPEARANCE, URINE MANUAL CLEAR (CLEAR); BILIRUBIN, URINE MANUAL NEGATIVE (NEGATIVE); BLOOD URINE MANUAL NEGATIVE (NEGATIVE); COLOR, URINE MANUAL COLORLESS (YELLOW); GLUCOSE, URINE (UA) MANUAL NEGATIVE (NEGATIVE); KETONE, URINE MANUAL NEGATIVE (NEGATIVE); LEUKOCYTE ESTERASE, URINE MAN NEGATIVE (NEGATIVE); NITRITE, URINE MANUAL NEGATIVE (NEGATIVE); PROTEIN, URINE MANUAL NEGATIVE (NEGATIVE); SPECIFIC GRAVITY,URINE MANUAL 1.005 (1.002-1.035); UROBILINOGEN, URINE MANUAL NORMAL (NORMAL)
[2020-10-09 11:45] VITALS: BP 182/74
[2020-10-09] MEDS ORDERED: AMLO2.5T3 PO (12:14)
[2020-10-09] MEDS ORDERED: amLODIPine 5 MG TAB PO ONE (12:15)
[2020-10-09] MEDS ORDERED: PILL CUTTER 1 EACH XX ONE (12:25)
--- NOTE | 2020-10-09 21:00 | ECGEPIP ---
[facility] - ED Test Date: 2020-10-09 Pat Name: SATINDER MORALES Department: Room: - Gender: Female Private Client Advisor: : [id number] Requested By: Serafin Colin Order Number: [id number] Reading MD: Serafin Rico Measurements Intervals Godley Rate: 64 P: 57 VT: 136 QRS: 25 QRSD: 96 T: 42 QT: 394 QTc: 406 Interpretive Statements Normal sinus rhythm Electronically Signed on 10-09-2020 21:00:01 EDT by Serafin Rico
== END 2020-10-09 12:30 | disposition home or self-care (01) ==
LOC: M ED 08:56
DX: I11.0 Hypertensive heart disease with heart failure (principal); F41.9 Anxiety disorder, unspecified; E78.5 Hyperlipidemia, unspecified; Z79.891 Long term (current) use of opiate analgesic; Z79.52 Long term (current) use of systemic steroids; Z79.82 Long term (current) use of aspirin; Z79.899 Other long term (current) drug therapy; Z88.0 Allergy status to penicillin; Z88.6 Allergy status to analgesic agent; Z88.8 Allergy status to other drugs, medicaments and biological substances; Z91.02 Food additives allergy status

== ENCOUNTER → 2020-12-24 | Outpatient (CLI) | payer MEDICARE, BC, OTHER ==
--- NOTE | 2020-12-24 16:35 | REPVR ---
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 Radiation optimization: All CT scans at this facility use at least one of these dose optimization techniques: automated exposure control; mA and/or kV adjustment per patient size (includes targeted exams where dose is matched to clinical indication); or iterative reconstruction. COMPARISON: No relevant prior studies available. FINDINGS: Bones/joints: Vertebral body heights are maintained. No locked or perched facets. Multilevel facet arthropathy. No acute cervical spine fracture. The dens is intact. Atlanto-axial intervals are normal. Discs/Spinal canal/Neural foramina: Multilevel degenerative changes with intervertebral disc height loss and osteophyte formation. Multilevel areas of osseous foraminal narrowing secondary to uncovertebral spurring and facet hypertrophy, including moderate right foraminal narrowing at C3-C4. Mild to moderate osseous canal narrowing at C5-C6. Thyroid: Bilateral thyroid nodules, largest low-density nodule on the left measuring 1.7 cm. Lungs: Lung apices are clear. Soft tissues: Unremarkable. IMPRESSION: 1. 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 Recommend further evaluation with MRI. 2. Bilateral thyroid nodules, largest low-density nodule on the left measuring 1.7 cm. Recommend further evaluation with nonemergent thyroid ultrasound. COMMENTS: Consistent with the [employer]'s Incidental Findings Committee white paper (J Am Shobha Radiol 2015): In patients aged 35 years and older with an incidental thyroid nodule equal to or greater than 1.[address], MRI or extrathyroidal US, further evaluation with dedicated thyroid US is recommended for patients with normal life expectancy and without comorbidities. For smaller nodules without suspicious features, no further evaluation or follow up is recommended. Electronically signed by: Gabe Chery On 12/24/2020 16:35:00 PM
== END ==
LOC: M RAD 15:50
PROVIDERS: ATTEND Physician Assistant
DX: M50.322 Other cervical disc degeneration at C5-C6 level (principal)

== ENCOUNTER → 2021-08-25 | Outpatient (CLI) | payer MEDICARE, BC, OTHER ==
[~2021-08-25] MED LIST changes: +OMEP-173 PO; -OMEP-218 PO
== END ==
LOC: M PLAIMG 13:24
PROVIDERS: ATTEND Physician Assistant
DX: M54.16 Radiculopathy, lumbar region (principal)

== ENCOUNTER → 2021-09-01 | Outpatient (CLI) | payer MEDICARE, BC, OTHER | LOC: M LABSMTC 11:51 | PROVIDERS: ATTEND Anesthesiology | DX: Z01.812 Encounter for preprocedural laboratory examination (principal); Z20.822 Contact with and (suspected) exposure to COVID-19 ==

== ENCOUNTER → 2021-09-05 | Day surgery (SDC) | payer MEDICARE, BC, OTHER ==
[~2021-09-05] VITALS: Ht 121.9 cm; Wt 42.7 kg
[~2021-09-05] MED LIST changes: +ACET650T15 PO; +ACETAMINOPHEN 1000MG 100ML IV BTL (OFIRMEV) (J0131 PER 10MG) As Ordered ONE; +DILT30TA PO; +ERYT5OIN25 TOP; +FISH1000 PO; +KETAMINE HCL 200 MG/20 ML VIAL As Ordered ONE; +LIDOCAINE 1% SDV 30ML VIAL As Ordered ONE; +LIDOCAINE 2% 100MG/5ML SDV (FOR ANES.) As Ordered ONE; +LR 1,000 ML IV ONE; +LUTE20CA11 PO; +MIDAZOLAM INJ 2MG/2ML VIAL (J2250 PER 1MG) As Ordered ONE; +NEOSPORIN TOP OINT 15GM As Ordered ONE; +OMEG100011 PO; +ONDANSETRON 4MG/2ML VIAL As Ordered ONE; +SALA1TAB PO; +SIMB1SUS OP; +VANCOMYCIN HCL 500 MG in D5W MINI-BAG PLUS 100 ML IV ONE; +VYZU0.02 OU; +dexameTHASONE 4 MG/ML 1ML VIAL (J1100 PER 1MG) As Ordered ONE; +propofoL 500 MG/50 ML VIAL As Ordered ONE
[2021-09-05 16:10] VITALS: BP 150/82
== END | disposition home or self-care (01) ==
LOC: M SDC 10:49
PROVIDERS: ATTEND Internal Medicine Cardiovascular Disease
DX: Z45.010 Encounter for checking and testing of cardiac pacemaker pulse generator [battery] (principal); I49.5 Sick sinus syndrome; I48.0 Paroxysmal atrial fibrillation; I11.9 Hypertensive heart disease without heart failure; K21.9 Gastro-esophageal reflux disease without esophagitis; K57.92 Diverticulitis of intestine, part unspecified, without perforation or abscess without bleeding; K52.9 Noninfective gastroenteritis and colitis, unspecified; K44.9 Diaphragmatic hernia without obstruction or gangrene; M51.9 Unspecified thoracic, thoracolumbar and lumbosacral intervertebral disc disorder; Z86.16 Personal history of COVID-19; M19.90 Unspecified osteoarthritis, unspecified site; G43.909 Migraine, unspecified, not intractable, without status migrainosus; J45.909 Unspecified asthma, uncomplicated; R06.83 Snoring; Z88.0 Allergy status to penicillin; Z88.1 Allergy status to other antibiotic agents; Z88.5 Allergy status to narcotic agent; Z88.4 Allergy status to anesthetic agent; Z91.02 Food additives allergy status; Z79.899 Other long term (current) drug therapy; Z79.01 Long term (current) use of anticoagulants
CPT/HCPCS: 33228; C1785; J0131; J1100; J2250; J2405; J3370

== ENCOUNTER → 2021-10-08 | Outpatient (CLI) | payer MEDICARE, BC, OTHER ==
[~2021-10-08] MED LIST changes: -ACETAMINOPHEN 1000MG 100ML IV BTL (OFIRMEV) (J0131 PER 10MG) As Ordered ONE; -D31000TA2 PO; -KETAMINE HCL 200 MG/20 ML VIAL As Ordered ONE; -LIDOCAINE 1% SDV 30ML VIAL As Ordered ONE; -LIDOCAINE 2% 100MG/5ML SDV (FOR ANES.) As Ordered ONE; -LR 1,000 ML IV ONE; -MIDAZOLAM INJ 2MG/2ML VIAL (J2250 PER 1MG) As Ordered ONE; -NEOSPORIN TOP OINT 15GM As Ordered ONE; -ONDANSETRON 4MG/2ML VIAL As Ordered ONE; -VANCOMYCIN HCL 500 MG in D5W MINI-BAG PLUS 100 ML IV ONE; +VITA100093 PO; -dexameTHASONE 4 MG/ML 1ML VIAL (J1100 PER 1MG) As Ordered ONE; -propofoL 500 MG/50 ML VIAL As Ordered ONE
== END ==
LOC: M WHC 08:51
PROVIDERS: ATTEND Family Medicine
DX: Z12.31 Encounter for screening mammogram for malignant neoplasm of breast (principal)

== ENCOUNTER → 2021-12-18 | Outpatient (CLI) | payer MEDICARE, BC, OTHER | LOC: M WHC 08:00 | PROVIDERS: ATTEND Family Medicine | DX: Z12.31 Encounter for screening mammogram for malignant neoplasm of breast (principal) ==

== ENCOUNTER → 2022-01-01 | Outpatient (REF) | payer MEDICARE, BC, OTHER | LOC: M LAB REF 17:05 | PROVIDERS: ATTEND Otolaryngology | DX: M35.00 Sjogren syndrome, unspecified (principal) ==

== ENCOUNTER → 2022-04-10 | Outpatient (CLI) | payer MEDICARE, OTHER, BC ==
[2022-04-10 10:29] LABS: PLATELET COUNT, AUTOMATED 240 10^3/uL (150-450)
[2022-04-10 10:44] LABS: INR 0.94
[2022-04-10 10:45] LABS: PARTIAL THROMBOPLASTIN TIME 34.2 SECONDS (25.9-37.0)
== END ==
LOC: M LAB 09:50
PROVIDERS: ATTEND Physician Assistant
DX: M47.892 Other spondylosis, cervical region (principal); Z79.01 Long term (current) use of anticoagulants

== ENCOUNTER → 2023-01-01 | Outpatient (CLI) | payer MEDICARE, BC, OTHER ==
[~2023-01-01] MED LIST changes: +ARTIDRO4 OU; -POLYOPD OU
== END ==
LOC: M WHC 08:54
PROVIDERS: ATTEND Family Medicine
DX: Z12.31 Encounter for screening mammogram for malignant neoplasm of breast (principal)

== ENCOUNTER 2023-06-07 17:15 | Emergency (ER) | payer MEDICARE, BC, OTHER ==
[~2023-06-07] VITALS: Ht 152.4 cm; Wt 40.9 kg
[2023-06-07 18:55] LABS: BASO % 0.5 % (0.0-1.0); EOS # 0.1 10^3/uL (0.0-0.5); EOS % 1.8 % (0.0-3.0); HEMATOCRIT 42.9 % (36.0-47.0); HEMOGLOBIN 14.2 g/dl (12.0-15.5); LYMPH # 2.2 10^3/uL (1.5-5.0); LYMPH % 28.3 % (24.0-44.0); MEAN CORPUSCULAR HEMOGLOBIN 30.5 pg (27.0-33.0); MEAN CORPUSCULAR HGB CONC 33.1 g/dl (32.0-36.5); MEAN CORPUSCULAR VOLUME 92.1 fl (80.0-96.0); MONO % 12.2 % (2.0-8.0); NEUTROPHILS # 4.5 10^3/uL (1.5-8.5); NEUTROPHILS % 56.9 % (36.0-66.0); PLATELET COUNT, AUTOMATED 232 10^3/uL (150-450); RED BLOOD COUNT 4.66 10^6/uL (4.00-5.40); WHITE BLOOD COUNT 7.9 10^3/uL (4.0-10.0)
[2023-06-07 19:12] LABS: INR 1.04; PROTHROMBIN TIME 13.3 SECONDS (12.5-14.5)
[2023-06-07 19:13] LABS: PARTIAL THROMBOPLASTIN TIME 25.1 SECONDS (24.8-34.2)
[2023-06-07 19:19] LABS: LIPASE 25 U/L (12-53)
[2023-06-07 19:21] LABS: ALBUMIN 3.9 G/DL (3.2-5.2); ALKALINE PHOSPHATASE 56 U/L (46-116); ALT/SGPT 39 U/L (7.0-40); AST/SGOT 37 U/L (<34); BILIRUBIN,DIRECT 0.2 MG/DL (<0.4); BILIRUBIN,TOTAL 0.9 MG/DL (0.3-1.2); BLOOD UREA NITROGEN 12 MG/DL (9-23); CALCIUM LEVEL 9.9 MG/DL (8.3-10.6); CARBON DIOXIDE LEVEL 26 MMOL/L (20-31); CHLORIDE LEVEL 100 MMOL/L (98-107); CREATININE FOR GFR 0.77 MG/DL (0.55-1.30); GLOMERULAR FILTRATION RATE > 60.0 (>32); GLUCOSE, FASTING 80 MG/DL (74-106); POTASSIUM SERUM 4.1 MMOL/L (3.5-5.1); SODIUM LEVEL 135 MMOL/L (136-145); TOTAL PROTEIN 6.6 G/DL (5.7-8.2)
[2023-06-07 19:30] LABS: RSV AMPLIFICATION NEGATIVE (NEGATIVE)
[2023-06-07 20:45] VITALS: TEMP 97.9
[2023-06-07 21:15] VITALS: BP 188/92; O2SAT 98
== END 2023-06-07 22:26 | disposition home or self-care (01) ==
LOC: M ED 17:15
DX: R10.9 Unspecified abdominal pain (principal); I50.9 Heart failure, unspecified; I10 Essential (primary) hypertension; K57.92 Diverticulitis of intestine, part unspecified, without perforation or abscess without bleeding; K21.9 Gastro-esophageal reflux disease without esophagitis; Z95.0 Presence of cardiac pacemaker; Z79.01 Long term (current) use of anticoagulants; Z79.899 Other long term (current) drug therapy; Z88.0 Allergy status to penicillin; Z88.5 Allergy status to narcotic agent; Z88.1 Allergy status to other antibiotic agents; Z88.8 Allergy status to other drugs, medicaments and biological substances; Z91.02 Food additives allergy status

== ENCOUNTER → 2023-07-25 | Outpatient (REF) | payer MEDICARE, BC, OTHER | LOC: M LAB REF 17:44 | PROVIDERS: ATTEND Physician Assistant | DX: M30.1 Polyarteritis with lung involvement [Churg-Strauss] (principal) ==

== ENCOUNTER → 2023-08-10 | Outpatient (CLI) | payer MEDICARE, BC, OTHER | LOC: M RAD 09:31 | PROVIDERS: ATTEND Family Medicine | DX: R19.06 Epigastric swelling, mass or lump (principal); R19.04 Left lower quadrant abdominal swelling, mass and lump; K86.89 Other specified diseases of pancreas ==

== ENCOUNTER → 2023-08-30 | Outpatient (REF) | payer MEDICARE, BC, OTHER | LOC: M LAB REF 11:37 | PROVIDERS: ATTEND Internal Medicine Gastroenterology | DX: R19.7 Diarrhea, unspecified (principal) ==

== ENCOUNTER 2023-10-06 08:59 | Day surgery (SDC) | payer MEDICARE, BC ==
[~2023-10-06] VITALS: Ht 152.4 cm; Wt 50.3 kg
[~2023-10-06 08:59] MED LIST changes: +LOTE5DRO9 OU; +NETA2.5D2 OU; +PARO5TAB PO
[2023-10-06] MEDS: NS 1,000 ML IV ONE (09:16)
[2023-10-06] MEDS ORDERED: fentaNYL 100 MCG/2 ML INJECTION As Ordered ONE (10:51)
[2023-10-06] MEDS ORDERED: propofoL 200 MG/20 ML VIAL As Ordered ONE (10:52)
[2023-10-06 11:24] VITALS: TEMP 97.6
[2023-10-06 11:40] VITALS: BP 189/79; O2SAT 96
== END 2023-10-06 11:45 | disposition home or self-care (01) ==
LOC: M OPP 08:59
PROVIDERS: ATTEND Internal Medicine Gastroenterology
DX: K22.2 Esophageal obstruction (principal); R13.10 Dysphagia, unspecified; I48.91 Unspecified atrial fibrillation; Z95.0 Presence of cardiac pacemaker; Z79.01 Long term (current) use of anticoagulants; Z79.02 Long term (current) use of antithrombotics/antiplatelets; Z79.899 Other long term (current) drug therapy; Z88.0 Allergy status to penicillin; Z88.1 Allergy status to other antibiotic agents; Z88.5 Allergy status to narcotic agent; Z88.8 Allergy status to other drugs, medicaments and biological substances; Z91.048 Other nonmedicinal substance allergy status
CPT/HCPCS: 43249; J3010

== ENCOUNTER → 2024-01-21 | Outpatient (CLI) | payer MEDICARE, BC ==
[~2024-01-21] MED LIST changes: +ROSU5TAB40 PO; -ROSU5TAB5 PO
== END ==
LOC: M WHC 09:25
PROVIDERS: ATTEND Family Medicine
DX: Z12.31 Encounter for screening mammogram for malignant neoplasm of breast (principal)

== ENCOUNTER 2024-06-20 08:25 | Emergency (ER) | payer MEDICARE, BC ==
[~2024-06-20] VITALS: Ht 152.4 cm; Wt 43.2 kg
[~2024-06-20 08:25] MED LIST changes: -ROSU5TAB40 PO; +ROSU5TAB49 PO
[2024-06-20 11:40] VITALS: BP 146/70; O2SAT 97
[2024-06-20 11:48] VITALS: TEMP 98.5
== END 2024-06-20 11:50 | disposition home or self-care (01) ==
LOC: M ED 08:25
DX: M16.12 Unilateral primary osteoarthritis, left hip (principal); M17.12 Unilateral primary osteoarthritis, left knee; I48.91 Unspecified atrial fibrillation; I50.22 Chronic systolic (congestive) heart failure; Z88.0 Allergy status to penicillin; Z88.2 Allergy status to sulfonamides; Z88.5 Allergy status to narcotic agent; Z88.8 Allergy status to other drugs, medicaments and biological substances; Z79.1 Long term (current) use of non-steroidal anti-inflammatories (NSAID); Z79.01 Long term (current) use of anticoagulants; Z79.810 Long term (current) use of selective estrogen receptor modulators (SERMs); Z79.899 Other long term (current) drug therapy

== ENCOUNTER → 2024-06-24 | Outpatient (CLI) | payer MEDICARE, BC ==
[2024-06-24 11:27] LABS: HEMATOCRIT 37.2 % (36.0-47.0); HEMOGLOBIN 11.5 g/dl (12.0-15.5); MEAN CORPUSCULAR HEMOGLOBIN 28.9 pg (27.0-33.0); MEAN CORPUSCULAR HGB CONC 30.9 g/dl (32.0-36.5); MEAN CORPUSCULAR VOLUME 93.5 fl (80.0-96.0); PLATELET COUNT, AUTOMATED 292 10^3/uL (150-450); RED BLOOD COUNT 3.98 10^6/uL (4.00-5.40); WHITE BLOOD COUNT 9.4 10^3/uL (4.0-10.0)
[2024-06-24 11:49] LABS: ALBUMIN 3.2 G/DL (3.2-5.2); BILIRUBIN,TOTAL 0.7 MG/DL (0.3-1.2); CALCIUM LEVEL 9.5 MG/DL (8.3-10.6); CHOLESTEROL RISK RATIO 2.13 (<5); CREATININE FOR GFR 1.05 MG/DL (0.55-1.30); GLOMERULAR FILTRATION RATE 53.2 (>32); LDL CHOLESTEROL 62.8 MG/DL (<100); POTASSIUM SERUM 4.3 MMOL/L (3.5-5.1); THYROID STIMULATING HORMONE 1.928 uIU/ML (0.55-4.78); TOTAL PROTEIN 5.9 G/DL (5.7-8.2)
[2024-06-24 11:51] LABS: INR 1.07; PROTHROMBIN TIME 14.2 SECONDS (12.5-14.5)
[2024-06-24 12:17] LABS: HEMOGLOBIN A1c 5.7 % (4.0-6.0)
== END ==
LOC: M LAB 08:28
PROVIDERS: ATTEND Family Medicine
DX: D64.9 Anemia, unspecified (principal); E78.00 Pure hypercholesterolemia, unspecified; Z79.01 Long term (current) use of anticoagulants

== ENCOUNTER 2024-08-05 08:12 | Emergency (ER) | payer MEDICARE, BC ==
[2024-08-05] MEDS: diphenhydrAMINE 25MG CAP PO ONE (09:05)
[2024-08-05] MEDS ORDERED: PRED20TA PO (10:25)
[2024-08-05 10:30] VITALS: BP 195/81; TEMP 97.4; O2SAT 95
== END 2024-08-05 10:35 | disposition home or self-care (01) ==
LOC: M ED 08:12
DX: L50.1 Idiopathic urticaria (principal); I48.91 Unspecified atrial fibrillation; J45.909 Unspecified asthma, uncomplicated; Z88.0 Allergy status to penicillin; Z88.5 Allergy status to narcotic agent; Z88.8 Allergy status to other drugs, medicaments and biological substances; Z79.1 Long term (current) use of non-steroidal anti-inflammatories (NSAID); Z79.01 Long term (current) use of anticoagulants; Z79.810 Long term (current) use of selective estrogen receptor modulators (SERMs); Z79.52 Long term (current) use of systemic steroids; Z79.899 Other long term (current) drug therapy

== ENCOUNTER 2024-08-24 18:34 | Emergency (ER) | payer MEDICARE, BC ==
[~2024-08-24] VITALS: Ht 152.4 cm; Wt 45.1 kg
[2024-08-24 19:37] LABS: BASO % 0.3 % (0.0-1.0); EOS % 0.6 % (0.0-3.0); HEMATOCRIT 46.4 % (36.0-47.0); HEMOGLOBIN 15.2 g/dl (12.0-15.5); LYMPH % 15.4 % (24.0-44.0); MEAN CORPUSCULAR HGB CONC 32.8 g/dl (32.0-36.5); MEAN CORPUSCULAR VOLUME 91.7 fl (80.0-96.0); MONO # 1.6 10^3/uL (0.0-0.8); NEUTROPHILS # 3.9 10^3/uL (1.5-8.5); NEUTROPHILS % 59.4 % (36.0-66.0); PLATELET COUNT, AUTOMATED 213 10^3/uL (150-450); RED BLOOD COUNT 5.06 10^6/uL (4.00-5.40); WHITE BLOOD COUNT 6.6 10^3/uL (4.0-10.0)
[2024-08-24 19:46] LABS: ALBUMIN 3.7 G/DL (3.2-5.2); BILIRUBIN,DIRECT 0.1 MG/DL (<0.4); BILIRUBIN,TOTAL 0.5 MG/DL (0.3-1.2); CREATININE FOR GFR 1.15 MG/DL (0.55-1.30); GLOMERULAR FILTRATION RATE 47.9 (>32); POTASSIUM SERUM 4.4 MMOL/L (3.5-5.1); TOTAL PROTEIN 6.7 G/DL (5.7-8.2)
[2024-08-24] MEDS: OSELTAMIVIR PHOSPHATE 75 MG CAP PO ONE (20:28)
[2024-08-24] MEDS: ACETAMINOPHEN *IV* 500 MG in IV 1 EA IV ONE (20:29)
[2024-08-24] MEDS ORDERED: OSEL75CA PO (21:01)
[2024-08-24] MEDS ORDERED: ONDA-282 PO (21:01)
[2024-08-24 21:15] VITALS: TEMP 98.9
[2024-08-24 21:45] VITALS: BP 172/79; O2SAT 95
[2024-08-25] MEDS ORDERED: ONDA-282 PO (13:47)
[2024-08-25] MEDS ORDERED: BRIN8DRO OU (13:47)
[2024-08-25] MEDS ORDERED: PRED5TA PO (13:47)
[2024-08-25] MEDS ORDERED: THERTAB52 PO (13:47)
[2024-08-25] MEDS ORDERED: OSEL75CA PO (13:47)
[2024-08-25] MEDS ORDERED: CEFD1CAP9 PO (13:48)
== END 2024-08-25 00:15 | disposition home or self-care (01) ==
LOC: EDBD 18:34 → M ED 18:34
DX: J09.X2 Influenza due to identified novel influenza A virus with other respiratory manifestations (principal); I48.91 Unspecified atrial fibrillation; I50.22 Chronic systolic (congestive) heart failure; E78.5 Hyperlipidemia, unspecified; E55.9 Vitamin D deficiency, unspecified; Z88.0 Allergy status to penicillin; Z88.1 Allergy status to other antibiotic agents; Z88.5 Allergy status to narcotic agent; Z88.8 Allergy status to other drugs, medicaments and biological substances; Z79.1 Long term (current) use of non-steroidal anti-inflammatories (NSAID); Z79.01 Long term (current) use of anticoagulants; Z79.52 Long term (current) use of systemic steroids; Z79.810 Long term (current) use of selective estrogen receptor modulators (SERMs); Z79.899 Other long term (current) drug therapy

== ENCOUNTER 2024-08-25 10:55 | Inpatient (IN) | payer MEDICARE, BC ==
[~2024-08-25] VITALS: Ht 152.4 cm; Wt 40.6 kg
[2024-08-25] MEDS: OSELTAMIVIR PHOSPHATE 30MG CAPSULE PO SCH (09:00)
[~2024-08-25 10:55] MED LIST changes: +ONDA-282 PO; +OSEL75CA PO
[2024-08-25 11:30] LABS: VENOUS BASE EXCESS -2.9 (-2.0-2.0); VENOUS HCO3 22.9 MMOL/L (23.0-27.0); VENOUS O2 SATURATION 64.4 % (60.0-80.0); VENOUS PARTIAL PRESSURE CO2 43.2 mmHg (38.0-50.0); VENOUS PARTIAL PRESSURE O2 34.2 mmHg (30.0-50.0); VENOUS PH 7.342 UNITS (7.330-7.430); VENOUS STANDARD HCO3 21.2 MMOL/L; VENOUS TOTAL CO2 24.2 MMOL/L (24.0-28.0)
[2024-08-25 11:42] LABS: BASO % 0.2 % (0.0-1.0); EOS % 0.1 % (0.0-3.0); HEMATOCRIT 47.8 % (36.0-47.0); HEMOGLOBIN 15.3 g/dl (12.0-15.5); LYMPH # 0.8 10^3/uL (1.5-5.0); LYMPH % 5.9 % (24.0-44.0); MEAN CORPUSCULAR HEMOGLOBIN 29.1 pg (27.0-33.0); MONO # 1.7 10^3/uL (0.0-0.8); MONO % 13.3 % (2.0-8.0); NEUTROPHILS # 10.4 10^3/uL (1.5-8.5); NEUTROPHILS % 80.1 % (36.0-66.0); PLATELET COUNT, AUTOMATED 209 10^3/uL (150-450); RED BLOOD COUNT 5.25 10^6/uL (4.00-5.40)
[2024-08-25 12:12] LABS: THYROID STIMULATING HORMONE 0.887 uIU/ML (0.55-4.78)
[2024-08-25 12:39] LABS: ALBUMIN 3.6 G/DL (3.2-5.2); BILIRUBIN,DIRECT 0.2 MG/DL (<0.4); BILIRUBIN,TOTAL 0.7 MG/DL (0.3-1.2); CALCIUM LEVEL 8.8 MG/DL (8.3-10.6); CREATININE FOR GFR 1.06 MG/DL (0.55-1.30); GLOMERULAR FILTRATION RATE 52.6 (>32); POTASSIUM SERUM 3.7 MMOL/L (3.5-5.1); TOTAL PROTEIN 6.7 G/DL (5.7-8.2)
[2024-08-25] MEDS: NS (Normal Saline) 0.9% 1,000 ML IV SCH ×2 (13:40→15:05)
[2024-08-25] MEDS ORDERED: ONDA-282 PO (13:47)
[2024-08-25] MEDS ORDERED: PRED5TA PO (13:47)
[2024-08-25] MEDS ORDERED: BRIN8DRO OU (13:47)
[2024-08-25] MEDS ORDERED: THERTAB52 PO (13:47)
[2024-08-25] MEDS ORDERED: OSEL75CA PO (13:47)
[2024-08-25] MEDS ORDERED: CEFD1CAP9 PO (13:48)
[2024-08-25] MEDS ORDERED: HOME MED LIST COMPLETE! XX SCH (13:50)
[2024-08-25] MEDS ORDERED: MAALOX 30 ML SUSP *UDC PO PRN (14:25)
[2024-08-25] MEDS ORDERED: ACETAMINOPHEN 325 MG TAB PO PRN (14:25)
[2024-08-25] MEDS ORDERED: MOM 30ML SUSPENSION UDC PO PRN (14:25)
[2024-08-25] MEDS ORDERED: ONDANSETRON 4MG 2ML VIAL IV PRN (14:40)
[2024-08-25] MEDS ORDERED: PILL CUTTER 1 EACH XX PRN (14:50)
[2024-08-25 17:24] VITALS: BP 121/96; TEMP 98.2; O2SAT 93
[2024-08-25] MEDS: LACTOBACILLUS ACIDOPHILUS CAP (BACID) PO SCH (18:00)
[2024-08-25 20:00] VITALS: BP 112/76; TEMP 97.6; O2SAT 97
[2024-08-25] MEDS: PARoxetine 10MG TABLET PO SCH (20:00)
[2024-08-25] MEDS: OMEPRAZOLE 20MG CAP PO SCH (20:00)
[2024-08-25] MEDS: APIXABAN 2.5 MG TAB (ELIQUIS) PO SCH (20:02)
[2024-08-26 04:00] VITALS: BP 147/74; TEMP 98.1; O2SAT 94
[2024-08-26 06:08] LABS: BASO % 0.1 % (0.0-1.0); EOS # 0.1 10^3/uL (0.0-0.5); EOS % 0.8 % (0.0-3.0); HEMATOCRIT 39.1 % (36.0-47.0); LYMPH # 1.4 10^3/uL (1.5-5.0); LYMPH % 16.7 % (24.0-44.0); MEAN CORPUSCULAR HEMOGLOBIN 29.8 pg (27.0-33.0); MEAN CORPUSCULAR HGB CONC 32.2 g/dl (32.0-36.5); MEAN CORPUSCULAR VOLUME 92.4 fl (80.0-96.0); MONO # 1.1 10^3/uL (0.0-0.8); MONO % 12.3 % (2.0-8.0); NEUTROPHILS # 5.9 10^3/uL (1.5-8.5); NEUTROPHILS % 69.9 % (36.0-66.0); PLATELET COUNT, AUTOMATED 185 10^3/uL (150-450); RED BLOOD COUNT 4.23 10^6/uL (4.00-5.40); WHITE BLOOD COUNT 8.5 10^3/uL (4.0-10.0)
[2024-08-26 06:11] LABS: CALCIUM LEVEL 8.1 MG/DL (8.3-10.6); CREATININE FOR GFR 0.99 MG/DL (0.55-1.30); GLOMERULAR FILTRATION RATE 56.9 (>32); MAGNESIUM LEVEL 1.8 MG/DL (1.8-2.4); POTASSIUM SERUM 3.6 MMOL/L (3.5-5.1)
[2024-08-26 06:12] LABS: HEMOGLOBIN 12.6 g/dl (12.0-15.5)
[2024-08-26 06:17] LABS: PROCALCITONIN 3.68 ng/ml
[2024-08-26] MEDS ORDERED: CALCIUM CARBONATE 500 MG CHEW U/D PO PRN (07:30)
[2024-08-26] MEDS: OMEGA-3 1000MG CAPSULE PO SCH (08:53)
[2024-08-26] MEDS: BRINZOLAMIDE 1% OPHTH SUSP (AZOPT) 10ML OU SCH (08:53)
[2024-08-26] MEDS: CYANOCOBALAMIN 500 MCG TAB PO SCH (08:53)
[2024-08-26] MEDS: ROSUVASTATIN 10 MG TAB (CRESTOR) PO SCH (08:54)
[2024-08-26] MEDS: ASCORBIC ACID 500 MG TAB PO SCH (08:54)
[2024-08-26] MEDS: predniSONE 5 MG TAB PO SCH (08:55)
[2024-08-26] MEDS: OSELTAMIVIR PHOSPHATE 30MG CAPSULE PO SCH (08:55)
[2024-08-26] MEDS: VITAMIN D 1,000 INTERNATIONAL UNITS TABLET PO SCH (08:56)
[2024-08-26] MEDS ORDERED: ALBUTEROL SULFATE 2.5MG/0.5ML INH NEB SOLN INH PRN (09:05)
[2024-08-26] MEDS: ALBUTEROL SULFATE 2.5MG/0.5ML INH NEB SOLN INH SCH (11:49)
[2024-08-26 21:00] VITALS: BP 128/57; TEMP 97.5; O2SAT 93
[2024-08-26] MEDS: BRIMONIDINE 0.15% OPHTH SOLN 5 ML OU SCH (22:16)
[2024-08-27 03:40] VITALS: BP 130/64; TEMP 97.2; O2SAT 97
[2024-08-27 06:35] LABS: BASO % 0.2 % (0.0-1.0); EOS % 0.4 % (0.0-3.0); HEMATOCRIT 37.9 % (36.0-47.0); HEMOGLOBIN 11.6 g/dl (12.0-15.5); LYMPH # 1.1 10^3/uL (1.5-5.0); LYMPH % 23.1 % (24.0-44.0); MEAN CORPUSCULAR HGB CONC 30.6 g/dl (32.0-36.5); MEAN CORPUSCULAR VOLUME 94.8 fl (80.0-96.0); MONO # 0.6 10^3/uL (0.0-0.8); NEUTROPHILS % 63.1 % (36.0-66.0); PLATELET COUNT, AUTOMATED 157 10^3/uL (150-450); WHITE BLOOD COUNT 4.8 10^3/uL (4.0-10.0)
[2024-08-27 06:54] LABS: CALCIUM LEVEL 8.4 MG/DL (8.3-10.6); CREATININE FOR GFR 0.95 MG/DL (0.55-1.30); GLOMERULAR FILTRATION RATE 59.7 (>32); MAGNESIUM LEVEL 1.8 MG/DL (1.8-2.4); POTASSIUM SERUM 3.2 MMOL/L (3.5-5.1)
[2024-08-27] MEDS: POTASSIUM CHLORIDE 10MEQ SR TABLET PO ONE (08:21)
[2024-08-27] MEDS ORDERED: RISATAB3 PO (09:37)
[2024-08-27 12:00] VITALS: BP 152/66; TEMP 97.9; O2SAT 100
== END 2024-08-27 14:41 | disposition home health service (06) | DRG 194 ==
LOC: M ED 10:55 → EDBD 10:55 → M ED INP 14:24 → M MSPAV 17:04
PROVIDERS: ADMIT Student in an Organized Health Care Education/Training Program; ATTEND Internal Medicine
DX: J10.1 Influenza due to other identified influenza virus with other respiratory manifestations (principal); I50.32 Chronic diastolic (congestive) heart failure; I49.5 Sick sinus syndrome; I48.91 Unspecified atrial fibrillation; K21.9 Gastro-esophageal reflux disease without esophagitis; Z95.0 Presence of cardiac pacemaker; K44.9 Diaphragmatic hernia without obstruction or gangrene; H40.9 Unspecified glaucoma; K58.1 Irritable bowel syndrome with constipation; R53.1 Weakness; E86.0 Dehydration; Z91.048 Other nonmedicinal substance allergy status; Z79.52 Long term (current) use of systemic steroids; Z79.01 Long term (current) use of anticoagulants; Z79.899 Other long term (current) drug therapy; Z88.0 Allergy status to penicillin; Z88.1 Allergy status to other antibiotic agents; Z88.5 Allergy status to narcotic agent; Z88.6 Allergy status to analgesic agent; Z88.4 Allergy status to anesthetic agent

== ENCOUNTER → 2025-01-31 | Outpatient (REF) | payer MEDICARE, OTHER ==
[~2025-01-31] MED LIST changes: +BRIN8DRO OU; +CEFD1CAP9 PO; +RISATAB3 PO; +THERTAB52 PO
== END ==
LOC: M LAB REF 11:40
PROVIDERS: ATTEND Student in an Organized Health Care Education/Training Program
DX: R30.0 Dysuria (principal)

== ENCOUNTER → 2025-04-10 | Outpatient (CLI) | payer MEDICARE, BC ==
[~2025-04-10] MED LIST changes: +ACET-1515 PO; -ACET650T15 PO
== END ==
LOC: M WHC 10:18
PROVIDERS: ATTEND Family Medicine
DX: Z12.31 Encounter for screening mammogram for malignant neoplasm of breast (principal)

== ENCOUNTER → 2025-05-25 | Outpatient (REF) | payer MEDICARE, OTHER ==
[~2025-05-25] MED LIST changes: +CEFD300CAP PO
== END ==
LOC: M LAB REF 17:03
DX: R30.0 Dysuria (principal)

== ENCOUNTER 2025-05-26 19:23 | Emergency (ER) | payer MEDICARE, OTHER ==
[~2025-05-26] VITALS: Ht 152.4 cm; Wt 43.0 kg
[~2025-05-26 19:23] MED LIST changes: -CEFD300CAP PO
[2025-05-26 20:58] LABS: BASO # 0.0 10^3/uL (0.0-0.2); BASO % 0.2 % (0.0-1.0); EOS # 0.1 10^3/uL (0.0-0.5); EOS % 0.6 % (0.0-3.0); LYMPH # 1.1 10^3/uL (1.5-5.0); LYMPH % 6.0 % (24.0-44.0); MONO # 1.4 10^3/uL (0.0-0.8); MONO % 7.5 % (2.0-8.0); NEUTROPHILS # 16.1 10^3/uL (1.5-8.5); NEUTROPHILS % 84.8 % (36.0-66.0); PLATELET COUNT, AUTOMATED 198 10^3/uL (150-450)
[2025-05-26 21:20] LABS: CALCIUM LEVEL 9.4 MG/DL (8.3-10.6); CARBON DIOXIDE LEVEL 27.0 MMOL/L (20-31); CHLORIDE LEVEL 101.0 MMOL/L (98-107); CREATININE FOR GFR 1.51 MG/DL (0.55-1.30); GLOMERULAR FILTRATION RATE 33.7 (>32); POTASSIUM SERUM 4.2 MMOL/L (3.5-5.1); SODIUM LEVEL 140.0 MMOL/L (136-145)
[2025-05-26] MEDS: cefTRIAXone SOD 1 GM in DEXTROSE 5% (D5W) ADV/MINI-BAG 50 ML IV ONE (22:37)
[2025-05-26] MEDS: NS (Normal Saline) 0.9% 1,000 ML IV ONE (22:37)
[2025-05-26] MEDS: ACETAMINOPHEN 325 MG TAB PO ONE (22:37)
[2025-05-26] MEDS ORDERED: CEFD300CAP PO (23:36)
[2025-05-27 00:10] VITALS: BP 145/64; TEMP 97.5; O2SAT 93
== END 2025-05-27 00:18 | disposition home or self-care (01) ==
LOC: M ED 19:23
DX: N30.00 Acute cystitis without hematuria (principal); N17.9 Acute kidney failure, unspecified; E86.0 Dehydration; Z88.0 Allergy status to penicillin; Z88.1 Allergy status to other antibiotic agents; Z88.5 Allergy status to narcotic agent; Z88.8 Allergy status to other drugs, medicaments and biological substances; Z79.1 Long term (current) use of non-steroidal anti-inflammatories (NSAID); Z79.01 Long term (current) use of anticoagulants; Z79.2 Long term (current) use of antibiotics; Z79.899 Other long term (current) drug therapy; Z79.52 Long term (current) use of systemic steroids; Z79.810 Long term (current) use of selective estrogen receptor modulators (SERMs)
CPT/HCPCS: 80048; 83605; 85025; 87040; 96365; 96366; 99284; J0696

== ENCOUNTER → 2025-06-22 | Outpatient (REF) | payer MEDICARE, OTHER ==
[~2025-06-22] MED LIST changes: +CEFD300CAP PO; -LUTE20CA11 PO; +LUTE20CA2 PO
== END ==
LOC: M LAB REF 17:13
DX: R30.0 Dysuria (principal)